=== PATIENT | male | born 1955 | race Caucasian/White ===

== ENCOUNTER 2017-08-08 20:04 | Inpatient (IN) | payer BC ==
[2017-08-08] MEDS ORDERED: Metoprolol Tartrate 5 MG/5 ML SDV IVPUSH PRN (21:52)
[2017-08-08] MEDS ORDERED: hydrALAZINE 20 MG/ML SDV IVPUSH PRN (21:52)
[2017-08-08] MEDS ORDERED: LORazepam 2 MG/ML SDV IVPUSH PRN (21:52)
[2017-08-08] MEDS ORDERED: Promethazine 12.5 MG in Sodium Chloride 0.9% 50 ML IV PRN (21:53)
[2017-08-08] MEDS ORDERED: Docusate Sodium 100 MG Cap PO PRN (21:53)
[2017-08-08] MEDS ORDERED: LORazepam 2 MG/ML SDV IV PRN (21:53)
[2017-08-08] MEDS ORDERED: Acetaminophen 325 MG Tab PO PRN (21:53)
[2017-08-08] MEDS ORDERED: Temazepam 15 MG Cap PO PRN (21:53)
[2017-08-08] MEDS ORDERED: Ondansetron 4 MG/2 ML SDV IV PRN (21:53)
[2017-08-08] MEDS ORDERED: Polyethylene Glycol 3350 Powder 17 GM Packet PO PRN (21:53)
[2017-08-08] MEDS ORDERED: Bisacodyl 5 MG Tab PO PRN (21:53)
[2017-08-08] MEDS ORDERED: Nicotine 21 MG/24 Hr Patch TRDERM ONE (22:00)
[2017-08-08] MEDS ORDERED: Levofloxacin/Dextrose 5%-Water 750 MG in Premix Bag 1 BAG IV ONE (22:00)
[2017-08-08] MEDS ORDERED: Saccharomyces Boulardii (Probiotic) 250 MG Cap PO ONE (22:00)
[2017-08-08] MEDS ORDERED: 50% Dextrose in Water 50 ML Syringe IVPUSH PRN (22:04)
[2017-08-08] MEDS ORDERED: guaiFENesin/Dextromethorphan 100-10 MG/5 ML Soln 5 ML Cup PO PRN (22:13)
--- NOTE | 2017-08-08 22:20 | PCM.HP ---
H&P History of Present Illness - General Date of Service: 08/08/17 Admit Problem/Dx: Admission Diagnosis/Problem Admission Diagnosis/Problem Pneumonia Source of Information: Patient, Family, Old Records, Provider, RN Notes Reviewed History Limitations: Reports: No Limitations - History of Present Illness Initial Comments - Free Text/Narative: This is a 62 yo white male who looks older than his stated age with past medical hx/o Impaired Vision/Hearing, HTN, PVD S/p Stent placement on left inner groin, Hx/o H. 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 Patient was initially seen at [facility] with complaints of having a cold that started this past Tuesday. His chief of complaint is associated with chest congestion, thoracic pain 2/2 persistent coughing, nasal congestion, and mixed: dry and productive cough with greenish colored sputum. His symptoms have progressively gotten worse that it hurts his back so bad from coughing. He took Dayquil and 's ProAir to improve his cold symptoms. He also sought a chiropractor's professional opinion for his significant back pain but according to him it did not help much. His initial work up was done at the [facility] with findings remarkable for leukocytosis with considerably elevated absolute neutrophils levels. His chest x -ray report shows moderate pleural effusion or consolidation in the right base Patient is being admitted for medical treatment of PNA/Bronchitis with Moderately Large Right Sided Pleural Effusion. He is CPR only. - Related Data Allergies/Adverse Reactions: Allergies Allergy/AdvReac Type Severity Reaction Status Date / Time No Known Allergies Allergy Verified 08/08/17 20:18 Home Medications: Home Meds Aspirin [Ecotrin] 81 mg PO DAILY 08/08/17 [History] Lisinopril [Prinivil] 10 mg PO DAILY 08/08/17 [History] Simvastatin. 1 tab PO DAILY 08/08/17 [History] glipiZIDE [Glipizide ER] 5 mg PO DAILY 08/08/17 [History] metFORMIN [Glucophage XR] 500 mg PO BEDTIME 08/08/17 [History] sitaGLIPtin Phos/Metformin HCl [Janumet 50-1,000 MG] 1 tab PO DAILY 08/08/17 [ History] Past Medical History Cardiovascular History: Reports: High Cholesterol, Hypertension Genitourinary History: Reports: Other (See Below) Other Genitourinary History: pancreatitis Endocrine/Metabolic History: Reports: Diabetes, Type II Social & Family History - Tobacco Use Smoking Status *Q: Current Every Day Smoker Years of Tobacco use: 50 Packs/Tins Daily: 2 - Caffeine Use Caffeine Use: Reports: Coffee - Recreational Drug Use Recreational Drug Use: No H&P Review of Systems - Review of Systems: Review Of Systems: See Below General: Reports: Weight Loss (13 Lbs). Denies: Fever, Chills, Malaise, Weakness, Fatigue, Night Sweats, Decreased Appetite HEENT: Reports: No Symptoms Pulmonary: Reports: Shortness of Breath, Cough, Sputum. Denies: Wheezing, Pleuritic Chest Pain Cardiovascular: Reports: Chest Pain (associated with relentless coughing), Dyspnea on Exertion. Denies: Palpitations, Orthopnea, Edema, Lightheadedness, Claudication, Blood Pressure Problem Gastrointestinal: Reports: Flatus. Denies: Abdominal Pain, Constipation, Diarrhea, Decreased Appetite, Difficulty Swallowing, Nausea, Vomiting Genitourinary: Reports: No Symptoms Musculoskeletal: Reports: Back Pain, Other (Flank Pain) Skin: Reports: Dryness, Bruising, Pruritis. Denies: Cyanosis, Jaundice, Diaphoresis, Erythema, Wound, Change in Hair/Nails Psychiatric: Reports: Agitation. Denies: Depression, Anxiety, Hallucinations, Suicidal Ideation Neurological: Reports: Difficulty Walking. Denies: Confusion, Headache, Syncope , Weakness Hematologic/Lymphatic: Reports: Anemia, Easy Bleeding Immunologic: Reports: No Symptoms Exam - Exam Exam: See Below - Vital Signs Vital Signs: Last Vital Signs Temp 36.6 C 08/08/17 20:13 Pulse 65 08/08/17 20:13 Resp 18 08/08/17 20:13 BP 157/84 H 08/08/17 20:13 Pulse Ox 97 08/08/17 20:13 Weight: 83.915 kg - Exam Quality Assessment: No: Supplemental Oxygen General: Alert, Oriented, Cooperative. No: Mild Distress HEENT: Conjunctiva Clear, EACs Clear, EOMI, Hearing Intact, Nares Patent, Normal Nasal Septum, Posterior Pharynx Clear, Pupils Equal, Pupils Reactive, TMs Clear Neck: Supple, Trachea Midline, Full Range of Motion, JVD. No: Lymphadenopathy, Thyromegaly Lungs: Normal Respiratory Effort, Decreased Breath Sounds (right side of the lungs), Crackles (left base) Cardiovascular: Regular Rate, Regular Rhythm GI/Abdominal Exam: Normal Bowel Sounds, Soft, Non-Tender, No Organomegaly, No Distention, No Abnormal Bruit, No Mass, Pelvis Stable (Male) Exam: Deferred Rectal (Males) Exam: Deferred Back Exam: Decreased Range of Motion Extremities: Normal Inspection, Normal Range of Motion, Non-Tender, No Pedal Edema, Normal Capillary Refill Peripheral Pulses: 3+: Posterior Tibial (L), Posterior Tibial (R), Dorsalis Pedis (L), Dorsalis Pedis (R) Skin: Warm, Dry, Intact, Rash, Petechia, Ecchymosis Neuro Extensive - Mental Status: Oriented x3, Normal Cognition, Memory Intact Neuro Extensive - Motor, Sensory, Reflexes: CN II-XII Intact, Normal Gait Psychiatric: Alert, Normal Affect, Normal Mood - Patient Data Result Diagrams: 08/09/17 05:40 08/09/17 05:40 EKG INTERPRETATION EKG Date: 08/08/17 Time: 22:20 Rhythm: Other (Sinus Rhythm) Rate (Beats/Min): 69 QRS: Other (Q wave in V1-V2) QT: Prolonged Comparison: NA - No Prior EKG EKG Interpretation Comments: Low voltage Problem List Initiated/Reviewed/Updated: Yes Orders Last 24hrs: Active Orders 24 hr Category Date Time Status Patient Status [ADT] Routine ADT 08/08/17 21:33 Active Blood Glucose Check, Bedside [RC] QIDACANDBED Care 08/08/17 22:04 Active Cardiac Monitoring [RC] CONTINUOUS Care 08/08/17 21:54 Active EKG Documentation Completion [RC] STAT Care 08/08/17 21:59 Active Flutter Valve Therapy [RT Chest Physiotherapy] [RC] Care 08/08/17 22:12 Active ASDIRECTED Height and Weight [RC] DAILY Care 08/08/17 21:53 Active IS (RT) [RT Incentive Spirometry] [RC] ASDIRECTED Care 08/08/17 22:12 Active Intake and Output [RC] QSHIFT Care 08/08/17 21:53 Active Oxygen Therapy [RC] PRN Care 08/08/17 21:53 Active Pulse Oximetry [RC] PRN Care 08/08/17 21:53 Active RT Aerosol Therapy [RC] ASDIRECTED Care 08/08/17 21:59 Active Up ad Addis [RC] ASDIRECTED Care 08/08/17 21:53 Active VTE/DVT Education [RC] PER UNIT ROUTINE Care 08/08/17 21:53 Active Vital Signs [RC] Q4H Care 08/08/17 21:53 Active Consult to Diabetic Nurse Specialist [CONS] Routine Cons 08/08/17 21:59 Active Consult to Clammer [CONS] Routine Cons 08/08/17 21:59 Active OT Evaluation and Treatment [CONS] Routine Cons 08/08/17 21:59 Active PT Evaluation and Treatment [CONS] Routine Cons 08/08/17 21:59 Active Respiratory Care Assess and Treatment [CONS] Routine Cons 08/08/17 21:59 Active 2 Gram Sodium Diet [DIET] Diet 08/08/17 Breakfast Active Consistent Carbohydrate Diet [DIET] Diet 08/08/17 Breakfast Active Heart Healthy Diet [DIET] Diet 08/08/17 Breakfast Active Echo Comp wo Cont [US] Urgent Exams 08/09/17 07:00 Ordered A1C [GLYCOSYLATED HEMOGLOBIN,HGBA1C] [CHEM] Stat Lab 08/08/17 22:03 Ordered BASIC METABOLIC PANEL,BMP [CHEM] AM Lab 08/09/17 05:11 Ordered BASIC METABOLIC PANEL,BMP [CHEM] AM Lab 08/10/17 05:11 Ordered BASIC METABOLIC PANEL,BMP [CHEM] Stat Lab 08/08/17 21:59 Ordered C-REACTIVE PROTEIN [CHEM] AM Lab 08/09/17 05:11 Ordered C-REACTIVE PROTEIN [CHEM] Stat Lab 08/08/17 21:59 Ordered CBC WITH AUTO DIFF [HEME] AM Lab 08/09/17 05:11 Ordered CBC WITH AUTO DIFF [HEME] AM Lab 08/10/17 05:11 Ordered CULTURE SPUTUM + SMEAR [RM] Routine Lab 08/08/17 22:08 Ordered INR,PT,PROTHROMBIN TIME [COAG] AM Lab 08/09/17 05:11 Ordered LIPID PANEL [CHEM] AM Lab 08/09/17 05:11 Ordered MAGNESIUM [CHEM] AM Lab 08/09/17 05:11 Ordered MAGNESIUM [CHEM] AM Lab 08/10/17 05:11 Ordered MAGNESIUM [CHEM] Stat Lab 08/08/17 21:59 Ordered MICROALBUMIN,URINE RANDOM [URCHEM] Stat Lab 08/08/17 22:04 Ordered MYCOPLASMA PNEUMONIAE IGM AB [CHEM] Stat Lab 08/08/17 22:07 Ordered RESPIRATORY PANEL BY PCR [MREF] Stat Lab 08/08/17 22:08 Ordered STREP PNEUMONIAE ANTIGEN [MREF] Stat Lab 08/08/17 22:08 Ordered T4 FREE [CHEM] Stat Lab 08/08/17 21:59 Ordered TSH [CHEM] Stat Lab 08/08/17 21:59 Ordered URINALYSIS W/MICROSCOPIC [UA W/MICROSCOPIC] [URIN] Lab 08/08/17 22:03 Ordered Urgent VITAMIN D 25-HYROXY (D2, D3) [REF] Stat Lab 08/08/17 22:03 Ordered Acetaminophen [Tylenol] Med 08/08/17 21:53 Active 650 mg PO Q4H PRN Acetaminophen/HYDROcodone [Nilwood 325-5 MG] Med 08/08/17 21:53 Active 1 tab PO Q4H PRN Albuterol/Ipratropium [DuoNeb 3.0-0.5 MG/3 ML] Med 08/08/17 21:53 Active 3 ml NEB Q4H PRN Aspirin [Halfprin] Med 08/09/17 09:00 Active 81 mg PO DAILY Benzonatate [Tessalon Perles] Med 08/08/17 21:00 Ordered 200 mg PO BID Bisacodyl [Dulcolax] Med 08/08/17 21:53 Active 5 mg PO DAILY PRN Dextromethorphan/guaiFENesin [Robitussin DM] Med 08/08/17 22:13 Ordered 10 ml PO Q4H PRN Dextrose 50% in Water Med 08/08/17 22:04 Active 50 ml IVPUSH ASDIRECTED PRN Docusate Sodium [Colace] Med 08/08/17 21:53 Active 100 mg PO BID PRN Docusate Sodium/Sennosides [Senna Plus] Med 08/08/17 21:53 Active 1 tab PO BID PRN Insulin Aspart [NovoLOG] Med 08/09/17 07:00 Active See Protocol SUBCUT QIDACANDBED LORazepam [Ativan] Med 08/08/17 21:53 Active 1 mg IV Q6H PRN LORazepam [Ativan] Med 08/08/17 21:52 Active 2 mg IVPUSH Q4H PRN Levofloxacin/Dextrose 5%-Water [Levaquin in D5W 750 MG/ Med 08/08/17 22:09 Ordered 150 ML] 750 mg Premix Bag 1 bag IV ONETIME Levofloxacin/Dextrose 5%-Water [Levaquin in D5W 750 MG/ Med 08/09/17 22:00 Ordered 150 ML] 750 mg Premix Bag 1 bag IV Q24H Lisinopril [Prinivil] Med 08/09/17 09:00 Active 10 mg PO DAILY Magnesium Rep Pharmacy to Dose [Pharmacy to Dose - Med 08/08/17 22:00 Pending Magnesium Replacement] 1 dose .XX ASDIRECTED Metoprolol Tartrate [Lopressor] Med 08/08/17 21:52 Active 5 mg IVPUSH Q4H PRN Morphine Med 08/08/17 21:53 Active 1 mg IVPUSH Q4H PRN Ondansetron [Zofran] Med 08/08/17 21:53 Active 4 mg IV Q6H PRN Polyethylene Glycol 3350 [MiraLAX] Med 08/08/17 21:53 Active 17 gm PO DAILY PRN Potassium Rep Pharmacy to Dose [Pharmacy to Dose - Med 08/08/17 22:00 Pending Potassium Replacement] 1 dose .XX ASDIRECTED Promethazine [Phenergan] 12.5 mg Med 08/08/17 21:53 Active Sodium Chloride 0.9% [Normal Saline] 50 ml IV Q6H Saccharomyces Boulardii [Florastor] Med 08/09/17 09:00 Ordered 250 mg PO DAILY Saccharomyces Boulardii [Florastor] Med 08/09/17 22:10 Once 500 mg PO DAILY ONE Simvastatin. Med 08/09/17 09:00 Pending 1 tab PO DAILY Temazepam [Restoril] Med 08/08/17 21:53 Active 15 mg PO BEDTIME PRN glipiZIDE [Glucotrol XL] Med 08/09/17 09:00 Active 5 mg PO DAILY hydrALAZINE [Apresoline] Med 08/08/17 21:52 Active 20 mg IVPUSH Q4H PRN metFORMIN [Glucophage] Med 08/09/17 21:00 Active 250 mg PO BID Sequential Compression Device [OM.PC] Per Unit Routine Oth 08/08/17 21:54 Ordered Resuscitation Status Routine Resus Stat 08/08/17 21:53 Ordered Medication Orders Acetaminophen (Tylenol) 650 mg PO Q4H PRN PRN Reason: Pain (Mild 1-3)/fever Hydrocodone Bitart/Acetaminophen (Nilwood 325-5 Mg) 1 tab PO Q4H PRN PRN Reason: Pain (moderate 4-6) Albuterol/Ipratropium (Duoneb 3.0-0.5 Mg/3 Ml) 3 ml NEB Q4H PRN PRN Reason: Shortness Of Breath/wheezing Aspirin (Halfprin) 81 mg PO DAILY VON Benzonatate (Tessalon Perles) 200 mg PO BID [facility] Bisacodyl (Dulcolax) 5 mg PO DAILY PRN PRN Reason: Constipation Dextrose/Water (Dextrose 50% In Water) 50 ml IVPUSH ASDIRECTED PRN PRN Reason: Hypoglycemia Docusate Sodium (Colace) 100 mg PO BID PRN PRN Reason: Constipation Glipizide (Glucotrol Xl) 5 mg PO DAILY [facility] Guaifenesin/Phenylephrine HCl (Robitussin Dm) 10 ml PO Q4H PRN PRN Reason: Cough Hydralazine HCl (Apresoline) 20 mg IVPUSH Q4H PRN PRN Reason: Hypertension Promethazine HCl 12.5 mg/ (Sodium Chloride) 50.5 mls @ 100 mls/hr IV Q6H PRN PRN Reason: Nausea/Vomiting Levofloxacin/Dextrose 750 mg/ (Premix) 150 mls @ 100 mls/hr IV ONETIME ONE Stop: 08/08/17 23:38 Levofloxacin/Dextrose 750 mg/ (Premix) 150 mls @ 100 mls/hr IV Q24H [facility] Insulin Aspart (Novolog) 0 unit SUBCUT QIDACANDBED [facility]; Protocol Lisinopril (Prinivil) 10 mg PO DAILY [facility] Lorazepam (Ativan) 2 mg IVPUSH Q4H PRN PRN Reason: Seizures Lorazepam (Ativan) 1 mg IV Q6H PRN PRN Reason: Anxiety Magnesium Sulfate (Pharmacy To Dose - Magnesium Replacement) 1 dose .XX ASDIRECTED [facility] Metformin HCl (Glucophage) 250 mg PO BID [facility] Metoprolol Tartrate (Lopressor) 5 mg IVPUSH Q4H PRN PRN Reason: Tachycardia Morphine Sulfate (Morphine) 1 mg IVPUSH Q4H PRN PRN Reason: Other Stop: 08/09/17 21:56 Non-Formulary Medication (Simvastatin.) 1 tab PO DAILY VON Ondansetron HCl (Zofran) 4 mg IV Q6H PRN PRN Reason: Nausea/Vomiting Polyethylene Glycol (Miralax) 17 gm PO DAILY PRN PRN Reason: Constipation Potassium Chloride (Pharmacy To Dose - Potassium Replacement) 1 dose .XX ASDIRECTED VON Saccharomyces Boulardii (Florastor) 250 mg PO DAILY VON Saccharomyces Boulardii (Florastor) 500 mg PO DAILY ONE Stop: 08/09/17 22:11 Senna/Docusate Sodium (Senna Plus) 1 tab PO BID PRN PRN Reason: Constipation Temazepam (Restoril) 15 mg PO BEDTIME PRN PRN Reason: Sleep Assessment/Plan Comment:: Assessment/Plan: Acute: Community Acquired PNA/Bronchitis - Superimposed by Moderately Large Right Sided Pleural Effusion - Risk Factors: Pulmonary Insufficiency and Active Smoker - Cough is mixed in nature: dry and sometimes could be we with greenish sputum - CURB 65 is not indicated; patient < 65 - PSI/PORT Score is 73 points: Risk Class III, 0.9-2.8% mortality. Outpatient or inpatient treatment, depending on clinical judgment. - WBC 16.6.K, Absolute Neutrophils 12.5%, CRP is 7.4 - Clinic CXR report 08/09/27: a moderate new right sided pleural effusion has developed or consolidated in the right base - Sputum Cx, Mycoplasma pneumoniae Ag, Strep pneumoniae Ag and Respiratory Viral Panel - IV Levaquin 750 mg IV daily, Decongestant/Expectorant Q4H PRN, and Tessalon Perles 200 mg po BID - Serial CXR as indicated and FV/IS as directed Moderately Large Pleural Effusion - New per [facility] notes - 2/2 PNA vs Heart Failure - He is not on blood thinners - Supplemental O2 PRN and IV Morphine PRB for Dyspnea and SOB - 2D echo to r/o Heart Failure - He is not on blood thinners - DVT prophylaxis: SCDs for now - Therapeutic and Diagnostic Thoracentesis in AM Hyperglycemia with DM2 - He normally runs in the 200s on average - BS on admission was 256 - Has been 7 years he was first diagnosed - He is not on steroids - DM Meds: Metformin 500 mg po daily and Glipizide ER 10 mg daily - A1C- 9.80 - Hold Janumet; ISS with low dose with Accu-check access Unintentional Weight Loss - Lost 13lbs since February 2017 - This could be 2/2 Pleural effusion +/- Chronic pancreatitis (Little to no intake due to Pain with eating) - SCC hx/o on his left hand Generalized Weakness - 2/2 Above - As above Tobacco Use Disorder - Smokes 2ppd for 50 year - Counseled on Smoking Cessation - Nicotine Patch Daily Chronic: Impaired Vision/Hearing HTN PVD S/p Stent placement on left inner groin Hx/o H. 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 Pylori screening RT/PT/OT consult Recommend PFT outpatient DVT/GI PPx: SCDs and H2B SW/CM for d/c planning Code status: CPR only
[2017-08-08] MEDS: Albuterol/Ipratropium 3.0-0.5 MG/3 ML Neb Soln NEB PRN (22:43)
[2017-08-08] MEDS: Benzonatate 100 MG Cap PO SCH (23:37)
[2017-08-09] MEDS ORDERED: Famotidine 20 MG/2 ML SDV IVPUSH ONE (00:22)
[2017-08-09] MEDS: Albuterol/Ipratropium 3.0-0.5 MG/3 ML Neb Soln NEB PRN ×4 (06:19→20:12)
[2017-08-09] MEDS: metFORMIN 500 MG Tab PO SCH ×2 (06:32→18:16)
[2017-08-09] MEDS ORDERED: Pneumococcal Polyvalent-23 Vaccine 0.5 ML SDV IM ONE (07:16)
[2017-08-09] MEDS ORDERED: Aspirin 81 MG Tab.EC PO SCH (09:00)
[2017-08-09] MEDS ORDERED: glipiZIDE 5 MG Tab.ER PO SCH (09:00)
[2017-08-09] MEDS ORDERED: Nicotine 21 MG/24 Hr Patch TRDERM SCH (09:00)
[2017-08-09] MEDS ORDERED: Lisinopril 10 MG Tab PO SCH (09:00)
[2017-08-09] MEDS ORDERED: Saccharomyces Boulardii (Probiotic) 250 MG Cap PO SCH (09:00)
[2017-08-09] MEDS ORDERED: Simvastatin 10 MG Tab PO SCH (09:00)
[2017-08-09] MEDS: Benzonatate 100 MG Cap PO SCH ×2 (09:27→21:51)
[2017-08-09] MEDS: Insulin Aspart 100 Units/ML 3 ML Pen SUBCUT SCH ×4 (09:28→21:59)
[2017-08-09] MEDS: Famotidine 20 MG Tab PO SCH ×2 (09:28→21:50)
[2017-08-09] MEDS: Morphine 2 MG/ML Syringe IVPUSH PRN ×3 (11:54→12:45)
[2017-08-09] MEDS ORDERED: Lidocaine 1% 50 ML MDV ONE (12:19)
[2017-08-09] MEDS ORDERED: Morphine 4 MG/ML Syringe ONE ×2 (12:43→12:44)
--- NOTE | 2017-08-09 13:03 | PCM.PRNOTE ---
- Free Text/Narrative Note: DATE OF PROCEDURE: 08/09/2017 PREOPERATIVE DIAGNOSIS: Right Sided Pleural Effusion POSTOPERATIVE DIAGNOSIS: Right Sided Pleural Effusion PROCEDURE PERFORMED: U/S Guided Diagnostic and Therapeutic Right Sided Thoracentesis SURGEON: Jac To DO [employer] HELPER: SHAR Grimes DESCRIPTION OF PROCEDURE: After informed consent was obtained, signed, the patient had ultrasound localization in the right hemithorax. The patient was sterilely prepped and topical lidocaine was induced. Stab incision was made and a thoracentesis catheter was inserted and 2525 mL of clear straw colored pleural fluid was obtained without difficulty. Estimated Blood Loss: Minimal The patient tolerated the procedure well w/o any complications. Post procedure chest x-ray is pending.
--- NOTE | 2017-08-09 13:17 | CR ---
Chest: Portable view of the chest was obtained. Comparison: No prior chest x-ray. Heart size appears within normal limits for portable technique. Slight right basilar atelectasis is noted. Lungs otherwise are clear. Bony structures are grossly intact. No pneumothorax is seen. Impression: 1. Mild right basilar atelectasis. No pneumothorax is seen. 2. Nothing acute is otherwise appreciated. Diagnostic code #2
--- NOTE | 2017-08-09 13:30 | PCM.PN ---
<Kelley Alvarez - Last Filed: 08/10/17 08:00> - General Info Date of Service: 08/09/17 Admission Dx/Problem (Free Text): Admission Diagnosis/Problem Admission Diagnosis/Problem Pneumonia Subjective Update: In to see [place] today. He is on 2-3 L O2 NC. He does not appear in acute respiratory distress. He reports slight dyspnea. Denies chest pain and he has no GI/ complaints. Functional Status: Reports: Pain Controlled, Tolerating Diet, Ambulating, Urinating - Review of Systems General: Reports: No Symptoms. Denies: Fever, Weakness HEENT: Reports: Sinus Congestion. Denies: Sore Throat Pulmonary: Reports: No Symptoms, Shortness of Breath (mild ). Denies: Cough, Hemoptysis Cardiovascular: Reports: No Symptoms. Denies: Chest Pain, Palpitations, Edema Gastrointestinal: Reports: No Symptoms. Denies: Abdominal Pain, Constipation, Diarrhea, Nausea, Vomiting Genitourinary: Reports: No Symptoms. Denies: Dysuria, Frequency Musculoskeletal: Reports: No Symptoms Skin: Reports: No Symptoms. Denies: Cyanosis, Pallor Neurological: Reports: No Symptoms. Denies: Confusion, Dizziness, Headache Psychiatric: Reports: No Symptoms. Denies: Confusion, Depression - Patient Data Vitals - Most Recent: Last Vital Signs Temp 98.2 F 08/09/17 11:12 Pulse 73 08/09/17 11:12 Resp 20 08/09/17 11:12 BP 134/76 08/09/17 11:12 Pulse Ox 91 L 08/09/17 11:22 Weight - Most Recent: 83.915 kg I&O - Last 24 Hours: Intake & Output 08/08/17 08/09/17 08/09/17 22:59 06:59 14:59 Intake Total 950 480 Output Total 400 Balance 550 480 Lab Results Last 24 Hours: Laboratory Results - last 24 hr 08/08/17 08/08/17 08/08/17 Range/Units 22:15 22:15 22:15 WBC (4.23-9.07) K/mm3 RBC (4.63-6.08) M/mm3 Hgb (13.7-17.5) gm/L Hct (40.1-51.0) % MCV (79.0-92.2) fl MCH (25.7-32.2) pg MCHC (32.2-35.5) g/dl RDW Std Deviation (35.1-43.9) fL Plt Count (163-337) K/mm3 MPV (9.4-12.3) fl Neut % (Auto) (34.0-67.9) % Lymph % (Auto) (21.8-53.1) % [place] % (Auto) (5.3-12.2) % Eos % (Auto) (0.8-7.0) Baso % (Auto) (0.1-1.2) % Neut # (Auto) (1.78-5.38) K/mm3 Lymph # (Auto) (1.32-3.57) K/mm3 [place] # (Auto) (0.30-0.82) K/mm3 Eos # (Auto) (0.04-0.54) K/mm3 Baso # (Auto) (0.01-0.08) K/mm3 PT (9.5-12.1) SECONDS INR Sodium 143 (136-145) mEq/L Potassium 3.9 (3.5-5.1) mEq/L Chloride 105 (98-107) mEq/L Carbon Dioxide 28 (21-32) mEq/L Anion Gap 13.9 (5-15) BUN 11 (7-18) mg/dL Creatinine 0.7 (0.7-1.3) mg/dL Est Cr Clr Drug Dosing 111.53 mL/min Estimated GFR (MDRD) > 60 (>60) mL/min BUN/Creatinine Ratio 15.7 (14-18) Glucose 256 H (80-115) mg/dL POC Glucose (80-115) mg/dL Hemoglobin A1c 9.80 H (4.50-6.20) % Calcium 8.8 (8.5-10.1) mg/dL Magnesium 2.0 (1.8-2.4) mg/dl C-Reactive Protein 7.4 H* (<1.0) mg/dL Triglycerides (<150) mg/dL Cholesterol (<200) mg/dL LDL Cholesterol Direct (<100) mg/dL HDL Cholesterol (40-59) mg/dL Free T4 1.16 (0.76-1.46) ng/dL TSH 3rd Generation 0.785 (0.358-3.74) uIU/mL Urine Color (Yellow) Urine Appearance (Clear) Urine pH (5.0-8.0) Ur Specific [place] (1.005-1.030) Urine Protein (Negative) Urine Glucose (UA) (Negative) Urine Ketones (Negative) Urine Occult Blood (Negative) Urine Nitrite (Negative) Urine Bilirubin (Negative) Urine Urobilinogen (0.2-1.0) Ur Leukocyte Esterase (Negative) Urine RBC (0-5) /hpf Urine WBC (0-5) /hpf Ur Epithelial Cells (0-5) /hpf Amorphous Sediment (NOT SEEN) /hpf Urine Bacteria (FEW) /hpf Urine Mucus (FEW) /hpf Ur Random Microalbumin (1.3-20.0) mg/L H. pylori IgG Antibody (NEGATIVE) Mycoplasma pneumon IgM Negative (NEGATIVE) 08/08/17 08/09/17 08/09/17 Range/Units 22:15 04:55 04:55 WBC (4.23-9.07) K/mm3 RBC (4.63-6.08) M/mm3 Hgb (13.7-17.5) gm/L Hct (40.1-51.0) % MCV (79.0-92.2) fl MCH (25.7-32.2) pg MCHC (32.2-35.5) g/dl RDW Std Deviation (35.1-43.9) fL Plt Count (163-337) K/mm3 MPV (9.4-12.3) fl Neut % (Auto) (34.0-67.9) % Lymph % (Auto) (21.8-53.1) % [place] % (Auto) (5.3-12.2) % Eos % (Auto) (0.8-7.0) Baso % (Auto) (0.1-1.2) % Neut # (Auto) (1.78-5.38) K/mm3 Lymph # (Auto) (1.32-3.57) K/mm3 [place] # (Auto) (0.30-0.82) K/mm3 Eos # (Auto) (0.04-0.54) K/mm3 Baso # (Auto) (0.01-0.08) K/mm3 PT (9.5-12.1) SECONDS INR Sodium (136-145) mEq/L Potassium (3.5-5.1) mEq/L Chloride (98-107) mEq/L Carbon Dioxide (21-32) mEq/L Anion Gap (5-15) BUN (7-18) mg/dL Creatinine (0.7-1.3) mg/dL Est Cr Clr Drug Dosing mL/min Estimated GFR (MDRD) (>60) mL/min BUN/Creatinine Ratio (14-18) Glucose (80-115) mg/dL POC Glucose (80-115) mg/dL Hemoglobin A1c (4.50-6.20) % Calcium (8.5-10.1) mg/dL Magnesium (1.8-2.4) mg/dl C-Reactive Protein (<1.0) mg/dL Triglycerides (<150) mg/dL Cholesterol (<200) mg/dL LDL Cholesterol Direct (<100) mg/dL HDL Cholesterol (40-59) mg/dL Free T4 (0.76-1.46) ng/dL TSH 3rd Generation (0.358-3.74) uIU/mL Urine Color Yellow (Yellow) Urine Appearance Clear (Clear) Urine pH 7.0 (5.0-8.0) Ur Specific [place] > or = 1.030 (1.005-1.030) Urine Protein Trace H (Negative) Urine Glucose (UA) 2+ H (Negative) Urine Ketones Negative (Negative) Urine Occult Blood Trace-intact H (Negative) Urine Nitrite Negative (Negative) Urine Bilirubin Negative (Negative) Urine Urobilinogen 1.0 (0.2-1.0) Ur Leukocyte Esterase Negative (Negative) Urine RBC 0-5 (0-5) /hpf Urine WBC 0-5 (0-5) /hpf Ur Epithelial Cells Not seen (0-5) /hpf Amorphous Sediment Few H (NOT SEEN) /hpf Urine Bacteria Few (FEW) /hpf Urine Mucus Many H (FEW) /hpf Ur Random Microalbumin 11.7 (1.3-20.0) mg/L H. pylori IgG Antibody Negative (NEGATIVE) Mycoplasma pneumon IgM (NEGATIVE) 08/09/17 08/09/17 08/09/17 Range/Units 05:40 05:40 05:40 WBC 14.17 H (4.23-9.07) K/mm3 RBC 4.56 L (4.63-6.08) M/mm3 Hgb 13.0 L (13.7-17.5) gm/L Hct 40.4 (40.1-51.0) % MCV 88.6 (79.0-92.2) fl MCH 28.5 (25.7-32.2) pg MCHC 32.2 (32.2-35.5) g/dl RDW Std Deviation 43.5 (35.1-43.9) fL Plt Count 448 H (163-337) K/mm3 MPV 10.4 (9.4-12.3) fl Neut % (Auto) 64.3 (34.0-67.9) % Lymph % (Auto) 18.8 L (21.8-53.1) % [place] % (Auto) 10.3 (5.3-12.2) % Eos % (Auto) 5.3 (0.8-7.0) Baso % (Auto) 0.6 (0.1-1.2) % Neut # (Auto) 9.11 H (1.78-5.38) K/mm3 Lymph # (Auto) 2.67 (1.32-3.57) K/mm3 [place] # (Auto) 1.46 H (0.30-0.82) K/mm3 Eos # (Auto) 0.75 H (0.04-0.54) K/mm3 Baso # (Auto) 0.08 (0.01-0.08) K/mm3 PT 12.3 H (9.5-12.1) SECONDS INR 1.13 Sodium 141 (136-145) mEq/L Potassium 4.0 (3.5-5.1) mEq/L Chloride 104 (98-107) mEq/L Carbon Dioxide 25 (21-32) mEq/L Anion Gap 16.0 H (5-15) BUN 11 (7-18) mg/dL Creatinine 0.7 (0.7-1.3) mg/dL Est Cr Clr Drug Dosing 111.53 mL/min Estimated GFR (MDRD) > 60 (>60) mL/min BUN/Creatinine Ratio 15.7 (14-18) Glucose 175 H (80-115) mg/dL POC Glucose (80-115) mg/dL Hemoglobin A1c (4.50-6.20) % Calcium 8.6 (8.5-10.1) mg/dL Magnesium 1.9 (1.8-2.4) mg/dl C-Reactive Protein 6.5 H* (<1.0) mg/dL Triglycerides 55 (<150) mg/dL Cholesterol 86 (<200) mg/dL LDL Cholesterol Direct 56 (<100) mg/dL HDL Cholesterol 22.0 L (40-59) mg/dL Free T4 (0.76-1.46) ng/dL TSH 3rd Generation (0.358-3.74) uIU/mL Urine Color (Yellow) Urine Appearance (Clear) Urine pH (5.0-8.0) Ur Specific [place] (1.005-1.030) Urine Protein (Negative) Urine Glucose (UA) (Negative) Urine Ketones (Negative) Urine Occult Blood (Negative) Urine Nitrite (Negative) Urine Bilirubin (Negative) Urine Urobilinogen (0.2-1.0) Ur Leukocyte Esterase (Negative) Urine RBC (0-5) /hpf Urine WBC (0-5) /hpf Ur Epithelial Cells (0-5) /hpf Amorphous Sediment (NOT SEEN) /hpf Urine Bacteria (FEW) /hpf Urine Mucus (FEW) /hpf Ur Random Microalbumin (1.3-20.0) mg/L H. pylori IgG Antibody (NEGATIVE) Mycoplasma pneumon IgM (NEGATIVE) 08/09/17 08/09/17 Range/Units 06:26 11:58 WBC (4.23-9.07) K/mm3 RBC (4.63-6.08) M/mm3 Hgb (13.7-17.5) gm/L Hct (40.1-51.0) % MCV (79.0-92.2) fl MCH (25.7-32.2) pg MCHC (32.2-35.5) g/dl RDW Std Deviation (35.1-43.9) fL Plt Count (163-337) K/mm3 MPV (9.4-12.3) fl Neut % (Auto) (34.0-67.9) % Lymph % (Auto) (21.8-53.1) % [place] % (Auto) (5.3-12.2) % Eos % (Auto) (0.8-7.0) Baso % (Auto) (0.1-1.2) % Neut # (Auto) (1.78-5.38) K/mm3 Lymph # (Auto) (1.32-3.57) K/mm3 [place] # (Auto) (0.30-0.82) K/mm3 Eos # (Auto) (0.04-0.54) K/mm3 Baso # (Auto) (0.01-0.08) K/mm3 PT (9.5-12.1) SECONDS INR Sodium (136-145) mEq/L Potassium (3.5-5.1) mEq/L Chloride (98-107) mEq/L Carbon Dioxide (21-32) mEq/L Anion Gap (5-15) BUN (7-18) mg/dL Creatinine (0.7-1.3) mg/dL Est Cr Clr Drug Dosing mL/min Estimated GFR (MDRD) (>60) mL/min BUN/Creatinine Ratio (14-18) Glucose (80-115) mg/dL POC Glucose 185 H 268 H (80-115) mg/dL Hemoglobin A1c (4.50-6.20) % Calcium (8.5-10.1) mg/dL Magnesium (1.8-2.4) mg/dl C-Reactive Protein (<1.0) mg/dL Triglycerides (<150) mg/dL Cholesterol (<200) mg/dL LDL Cholesterol Direct (<100) mg/dL HDL Cholesterol (40-59) mg/dL Free T4 (0.76-1.46) ng/dL TSH 3rd Generation (0.358-3.74) uIU/mL Urine Color (Yellow) Urine Appearance (Clear) Urine pH (5.0-8.0) Ur Specific [place] (1.005-1.030) Urine Protein (Negative) Urine Glucose (UA) (Negative) Urine Ketones (Negative) Urine Occult Blood (Negative) Urine Nitrite (Negative) Urine Bilirubin (Negative) Urine Urobilinogen (0.2-1.0) Ur Leukocyte Esterase (Negative) Urine RBC (0-5) /hpf Urine WBC (0-5) /hpf Ur Epithelial Cells (0-5) /hpf Amorphous Sediment (NOT SEEN) /hpf Urine Bacteria (FEW) /hpf Urine Mucus (FEW) /hpf Ur Random Microalbumin (1.3-20.0) mg/L H. pylori IgG Antibody (NEGATIVE) Mycoplasma pneumon IgM (NEGATIVE) Med Orders - Current: Current Medications Acetaminophen (Tylenol) 650 mg PO Q4H PRN PRN Reason: Pain (Mild 1-3)/fever Hydrocodone Bitart/Acetaminophen ([place] 325-5 Mg) 1 tab PO Q4H PRN PRN Reason: Pain (moderate 4-6) Albuterol/Ipratropium (Duoneb 3.0-0.5 Mg/3 Ml) 3 ml NEB Q4H PRN PRN Reason: Shortness Of Breath/wheezing Last Admin: 08/09/17 11:21 Dose: 3 ml Aspirin (Halfprin) 81 mg PO DAILY [facility] Last Admin: 08/09/17 09:28 Dose: 81 mg Benzonatate (Tessalon Perles) 200 mg PO BID [facility] Last Admin: 08/09/17 09:27 Dose: 200 mg Bisacodyl (Dulcolax) 5 mg PO DAILY PRN PRN Reason: Constipation Dextrose/Water (Dextrose 50% In Water) 50 ml IVPUSH ASDIRECTED PRN PRN Reason: Hypoglycemia Docusate Sodium (Colace) 100 mg PO BID PRN PRN Reason: Constipation Famotidine (Pepcid) 20 mg PO BID [facility] Last Admin: 08/09/17 09:28 Dose: 20 mg Glipizide (Glucotrol Xl) 5 mg PO DAILY [facility] Last Admin: 08/09/17 09:28 Dose: 5 mg Guaifenesin/Phenylephrine HCl (Robitussin Dm) 10 ml PO Q4H PRN PRN Reason: Cough Hydralazine HCl (Apresoline) 20 mg IVPUSH Q4H PRN PRN Reason: Hypertension Promethazine HCl 12.5 mg/ (Sodium Chloride) 50.5 mls @ 100 mls/hr IV Q6H PRN PRN Reason: Nausea/Vomiting Levofloxacin/Dextrose 750 mg/ (Premix) 150 mls @ 100 mls/hr IV Q24H [facility] Insulin Aspart (Novolog) 0 unit SUBCUT QIDACANDBED [facility]; Protocol Last Admin: 08/09/17 09:28 Dose: 1 units Lisinopril (Prinivil) 10 mg PO DAILY [facility] Last Admin: 08/09/17 09:28 Dose: 10 mg Lorazepam (Ativan) 2 mg IVPUSH Q4H PRN PRN Reason: Seizures Lorazepam (Ativan) 1 mg IV Q6H PRN PRN Reason: Anxiety Magnesium Sulfate (Pharmacy To Dose - Magnesium Replacement) 1 dose .XX ASDIRECTED [facility] Metformin HCl (Glucophage) 250 mg PO BIDMEALS [facility] Last Admin: 08/09/17 06:32 Dose: 250 mg Metoprolol Tartrate (Lopressor) 5 mg IVPUSH Q4H PRN PRN Reason: Tachycardia Miscellaneous Information (Remove Patch) 1 ea TRDERM DAILY [facility] Last Admin: 08/09/17 09:53 Dose: Not Given Morphine Sulfate (Morphine) 1 mg IVPUSH Q4H PRN PRN Reason: Other Stop: 08/09/17 21:56 Last Admin: 08/09/17 11:54 Dose: 1 mg Nicotine (Habitrol) 21 mg TRDERM DAILY [facility] Last Admin: 08/09/17 09:53 Dose: Not Given Ondansetron HCl (Zofran) 4 mg IV Q6H PRN PRN Reason: Nausea/Vomiting Polyethylene Glycol (Miralax) 17 gm PO DAILY PRN PRN Reason: Constipation Potassium Chloride (Pharmacy To Dose - Potassium Replacement) 1 dose .XX ASDIRECTED [facility] Saccharomyces Boulardii (Florastor) 250 mg PO DAILY [facility] Last Admin: 08/09/17 09:28 Dose: 250 mg Senna/Docusate Sodium (Senna Plus) 1 tab PO BID PRN PRN Reason: Constipation Simvastatin (Zocor) 10 mg PO DAILY [facility] Last Admin: 08/09/17 09:28 Dose: 10 mg Temazepam (Restoril) 15 mg PO BEDTIME PRN PRN Reason: Sleep Discontinued Medications Famotidine (Pepcid) 20 mg IVPUSH ONETIME ONE Stop: 08/09/17 00:23 Last Admin: 08/09/17 01:24 Dose: 20 mg Levofloxacin/Dextrose 750 mg/ (Premix) 150 mls @ 100 mls/hr IV ONETIME ONE Stop: 08/08/17 23:29 Last Admin: 08/08/17 23:37 Dose: 100 mls/hr Lidocaine HCl (Xylocaine 1%) Confirm Administered Dose 50 ml .ROUTE .STK-MED ONE Stop: 08/09/17 12:20 Metformin HCl (Glucophage) 250 mg PO BID [facility] Morphine Sulfate (Morphine) Confirm Administered Dose 4 mg .ROUTE .STK-MED ONE Stop: 08/09/17 12:44 Morphine Sulfate (Morphine) Confirm Administered Dose 4 mg .ROUTE .STK-MED ONE Stop: 08/09/17 12:45 Nicotine (Habitrol) 21 mg TRDERM ONETIME ONE Stop: 08/08/17 22:01 Last Admin: 08/08/17 23:37 Dose: Not Given Pneumococcal Polyvalent Vaccine (Pneumovax 23) 0.5 ml IM .ONCE ONE Stop: 08/09/17 07:17 Saccharomyces Boulardii (Florastor) 500 mg PO DAILY ONE Stop: 08/08/17 22:01 Last Admin: 08/08/17 23:36 Dose: 500 mg - Exam Quality Assessment: Supplemental Oxygen General: Alert, Oriented, Cooperative, No Acute Distress HEENT: Pupils Equal, Pupils Reactive, EOMI, Mucous Membr. Moist/[place] Neck: Supple. No: Lymphadenopathy Lungs: Decreased Breath Sounds (b/l but worse on left ). No: Crackles, Rales Cardiovascular: Regular Rate, Regular Rhythm, No Murmurs GI/Abdominal Exam: Normal Bowel Sounds, Soft, Non-Tender, No Distention (Male) Exam: Deferred Back Exam: Normal Inspection, Full Range of Motion Extremities: Normal Inspection, Normal Range of Motion, Non-Tender, No Pedal Edema Skin: Warm, Dry, Intact Neurological: No New Focal Deficit, Strength Equal Bilateral, Cranial Nerves Intact (grossly ) Psy/Mental Status: Alert, Normal Affect, Normal Mood - Problem List Review Problem List Initiated/Reviewed/Updated: Yes - Plan Plan:: Assessment/Plan: Acute: Community Acquired/Aspiration PNA vs Chronic Bronchitis - Superimposed by Moderately Large Right Sided Pleural Effusion - Risk Factors: Pulmonary Insufficiency and Active Smoker - Cough is mixed in nature: dry and sometimes could be wet with greenish sputum - CURB 65 is not indicated; PSI/PORT Score is 83 points: Risk Class III, 0.9- 2.8% mortality, outpatient or inpatient treatment, depending on clinical judgment - WBC 14.17K (was 16.6.K), CRP 6.5 (was 7.4) Absolute Neutrophils 12.5% - Clinic CXR report 08/09/27: a moderate new right sided pleural effusion has developed or consolidated in the right base - Sputum Cx, Strep pneumoniae Ag and Respiratory Viral Panel pending - Mycoplasma pneumoniae negative - IV Levaquin 750 mg IV daily, Decongestant/Expectorant Q4H PRN, and Tessalon Perles 200 mg po BID - Serial CXR as indicated and FV/IS as directed Moderately Large Pleural Effusion - New per [facility] notes - 2/2 PNA vs Heart Failure - He is not on blood thinners - Supplemental O2 PRN and IV Morphine PRN for Dyspnea and SOB - 2D echo to r/o Heart Failure pending - DVT prophylaxis: SCDs for now - Therapeutic and Diagnostic Right Sided Thoracentesis performed today with 2525 ml straw colored pleural fluid removed; he did experience pain at site of thoracentesis and chest pain after the procedure --> chest xray s/p thoracentesis was read as no pneumothorax and EKG was HR 67 and 1st degree HB - His pain is likely 2/2 reexpansion syndrome - Will monitor closely for reexpansion pulmonary edema --> supplemental O2 , BiPap prn, patient to lie on unaffected side - CXR tomorrow morning - Pleural fluid sent for analysis Hyperglycemia with DM2 - Patient reports that he normally runs in the 200s on average - BS on admission was 256 and UA with 2+ glucose - Has been 7 years he was first diagnosed - He is not on steroids - DM Meds: Metformin 500 mg po daily, Janument daily and Glipizide ER 5 mg daily - A1C- 9.80 - UA with microalbumin 11.7 - Lipid panel: Total cholesterol 86, LDL 56, HDL 22 --> home meds include simvastatin - Hold Janumet; ISS with low dose with Accu-check access - Dietitian and simulation educator consul Un[employer] Weight Loss - Lost 13lbs since February 2017 - This could be 2/2 Pleural effusion +/- Chronic pancreatitis (Little to no intake due to pain with eating) - SCC hx/o on his left hand - H.Pylori negative - TSH 0.785 and FT4 1.16 Generalized Weakness - 2/2 Above - Will consult PT/OT Chronic: Impaired Vision/Hearing HTN PVD S/p Stent placement on left inner groin Hx/o H.Pylori Infection Psychosexual Dysfunction with Inhibited Sexual Excitement Pancreatitis (likely 2/2 chronic atherosclerosis with pending GI follow up this Tuesday) Pulmonary Insufficiency. 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 Mild-Moderate Spinal Degenerative Disease Plan: Admit to [facility] with Tele Resume Home Meds Routine AM Labs Vitamin D level pending RT/PT/OT consult Dietitian and simulation educator consult DVT/GI PPx: SCDs and H2B SW/CM for d/c planning Code status: CPR only <Jac To T - Last Filed: 08/10/17 08:25> - Patient Data Vitals - Most Recent: Last Vital Signs Temp 36.7 C 08/10/17 05:11 Pulse 66 08/10/17 05:11 Resp 18 08/10/17 05:11 BP 119/85 08/10/17 05:11 Pulse Ox 91 L 08/10/17 05:11 I&O - Last 24 Hours: Intake & Output 08/09/17 08/10/17 08/10/17 22:59 06:59 14:59 Intake Total 1520 550 Output Total 1700 1500 Balance -180 -950 Lab Results Last 24 Hours: Laboratory Results - last 24 hr 08/08/17 08/09/17 08/09/17 Range/Units 22:15 11:58 12:45 WBC (4.23-9.07) K/mm3 RBC (4.63-6.08) M/mm3 Hgb (13.7-17.5) gm/L Hct (40.1-51.0) % MCV (79.0-92.2) fl MCH (25.7-32.2) pg MCHC (32.2-35.5) g/dl RDW Std Deviation (35.1-43.9) fL Plt Count (163-337) K/mm3 MPV (9.4-12.3) fl Neut % (Auto) (34.0-67.9) % Lymph % (Auto) (21.8-53.1) % [place] % (Auto) (5.3-12.2) % Eos % (Auto) (0.8-7.0) Baso % (Auto) (0.1-1.2) % Neut # (Auto) (1.78-5.38) K/mm3 Lymph # (Auto) (1.32-3.57) K/mm3 [place] # (Auto) (0.30-0.82) K/mm3 Eos # (Auto) (0.04-0.54) K/mm3 Baso # (Auto) (0.01-0.08) K/mm3 Manual Slide Review D-Dimer, Quantitative (0.19-0.50) mg/L Sodium (136-145) mEq/L Potassium (3.5-5.1) mEq/L Chloride (98-107) mEq/L Carbon Dioxide (21-32) mEq/L Anion Gap (5-15) BUN (7-18) mg/dL Creatinine (0.7-1.3) mg/dL Est Cr Clr Drug Dosing mL/min Estimated GFR (MDRD) (>60) mL/min BUN/Creatinine Ratio (14-18) Glucose (80-115) mg/dL POC Glucose 268 H (80-115) mg/dL Calcium (8.5-10.1) mg/dL Magnesium (1.8-2.4) mg/dl CK-MB (CK-2) (0-3.6) ng/ml Troponin I (0.00-0.056) ng/mL C-Reactive Protein (<1.0) mg/dL Vitamin D 25-Hydroxy 19 L (30-100) ng/mL Body Fluid Site Fluid Type Thoracentesis fluid Fluid Volume ML Fluid Color Fluid Appearance Fluid pH 7.5 (4.5-10.0) Fluid WBC (0.20-0.60) k/mm*3 Fluid RBC (0.00-0.010) 10*6/uL Fluid Diff Comment Fluid Seg Neutrophils (0-25) % Fluid Lymphocytes (0-78) % Fluid Monocytes (0-71) % Fl Polymorphonucl Cell Fluid Glucose mg/dL Fluid Total Protein gm/dl Fluid LDH U/L 08/09/17 08/09/17 08/09/17 Range/Units 12:45 12:45 12:50 WBC (4.23-9.07) K/mm3 RBC (4.63-6.08) M/mm3 Hgb (13.7-17.5) gm/L Hct (40.1-51.0) % MCV (79.0-92.2) fl MCH (25.7-32.2) pg MCHC (32.2-35.5) g/dl RDW Std Deviation (35.1-43.9) fL Plt Count (163-337) K/mm3 MPV (9.4-12.3) fl Neut % (Auto) (34.0-67.9) % Lymph % (Auto) (21.8-53.1) % [place] % (Auto) (5.3-12.2) % Eos % (Auto) (0.8-7.0) Baso % (Auto) (0.1-1.2) % Neut # (Auto) (1.78-5.38) K/mm3 Lymph # (Auto) (1.32-3.57) K/mm3 [place] # (Auto) (0.30-0.82) K/mm3 Eos # (Auto) (0.04-0.54) K/mm3 Baso # (Auto) (0.01-0.08) K/mm3 Manual Slide Review D-Dimer, Quantitative (0.19-0.50) mg/L Sodium (136-145) mEq/L Potassium (3.5-5.1) mEq/L Chloride (98-107) mEq/L Carbon Dioxide (21-32) mEq/L Anion Gap (5-15) BUN (7-18) mg/dL Creatinine (0.7-1.3) mg/dL Est Cr Clr Drug Dosing mL/min Estimated GFR (MDRD) (>60) mL/min BUN/Creatinine Ratio (14-18) Glucose (80-115) mg/dL POC Glucose (80-115) mg/dL Calcium (8.5-10.1) mg/dL Magnesium (1.8-2.4) mg/dl CK-MB (CK-2) (0-3.6) ng/ml Troponin I (0.00-0.056) ng/mL C-Reactive Protein (<1.0) mg/dL Vitamin D 25-Hydroxy (30-100) ng/mL Body Fluid Site Right lung Fluid Type Thoracentesis fluid Thoracentesis fluid Thoracentesis fluid Fluid Volume 2500 ML Fluid Color Yellow Fluid Appearance Clear Fluid pH (4.5-10.0) Fluid WBC 1.47 H (0.20-0.60) k/mm*3 Fluid RBC 0.003 (0.00-0.010) 10*6/uL Fluid Diff Comment See note Fluid Seg Neutrophils 42.0 H (0-25) % Fluid Lymphocytes 18.0 (0-78) % Fluid Monocytes 3.0 (0-71) % Fl Polymorphonucl Cell Not Reportable Fluid Glucose 259 mg/dL Fluid Total Protein 3.2 gm/dl Fluid LDH 583 U/L 08/09/17 08/09/17 08/09/17 Range/Units 13:08 13:08 18:12 WBC (4.23-9.07) K/mm3 RBC (4.63-6.08) M/mm3 Hgb (13.7-17.5) gm/L Hct (40.1-51.0) % MCV (79.0-92.2) fl MCH (25.7-32.2) pg MCHC (32.2-35.5) g/dl RDW Std Deviation (35.1-43.9) fL Plt Count (163-337) K/mm3 MPV (9.4-12.3) fl Neut % (Auto) (34.0-67.9) % Lymph % (Auto) (21.8-53.1) % [place] % (Auto) (5.3-12.2) % Eos % (Auto) (0.8-7.0) Baso % (Auto) (0.1-1.2) % Neut # (Auto) (1.78-5.38) K/mm3 Lymph # (Auto) (1.32-3.57) K/mm3 [place] # (Auto) (0.30-0.82) K/mm3 Eos # (Auto) (0.04-0.54) K/mm3 Baso # (Auto) (0.01-0.08) K/mm3 Manual Slide Review D-Dimer, Quantitative 6.24 H (0.19-0.50) mg/L Sodium (136-145) mEq/L Potassium (3.5-5.1) mEq/L Chloride (98-107) mEq/L Carbon Dioxide (21-32) mEq/L Anion Gap (5-15) BUN (7-18) mg/dL Creatinine (0.7-1.3) mg/dL Est Cr Clr Drug Dosing mL/min Estimated GFR (MDRD) (>60) mL/min BUN/Creatinine Ratio (14-18) Glucose (80-115) mg/dL POC Glucose 181 H (80-115) mg/dL Calcium (8.5-10.1) mg/dL Magnesium (1.8-2.4) mg/dl CK-MB (CK-2) 0.5 (0-3.6) ng/ml Troponin I < 0.017 (0.00-0.056) ng/mL C-Reactive Protein (<1.0) mg/dL Vitamin D 25-Hydroxy (30-100) ng/mL Body Fluid Site Fluid Type Fluid Volume ML Fluid Color Fluid Appearance Fluid pH (4.5-10.0) Fluid WBC (0.20-0.60) k/mm*3 Fluid RBC (0.00-0.010) 10*6/uL Fluid Diff Comment Fluid Seg Neutrophils (0-25) % Fluid Lymphocytes (0-78) % Fluid Monocytes (0-71) % Fl Polymorphonucl Cell Fluid Glucose mg/dL Fluid Total Protein gm/dl Fluid LDH U/L 08/09/17 08/10/17 08/10/17 Range/Units 21:58 05:50 05:50 WBC 12.57 H (4.23-9.07) K/mm3 RBC 4.63 (4.63-6.08) M/mm3 Hgb 13.5 L (13.7-17.5) gm/L Hct 41.1 (40.1-51.0) % MCV 88.8 (79.0-92.2) fl MCH 29.2 (25.7-32.2) pg MCHC 32.8 (32.2-35.5) g/dl RDW Std Deviation 43.6 (35.1-43.9) fL Plt Count 509 H (163-337) K/mm3 MPV 9.9 (9.4-12.3) fl Neut % (Auto) 61.3 (34.0-67.9) % Lymph % (Auto) 21.3 L (21.8-53.1) % [place] % (Auto) 9.9 (5.3-12.2) % Eos % (Auto) 5.9 (0.8-7.0) Baso % (Auto) 0.6 (0.1-1.2) % Neut # (Auto) 7.72 H (1.78-5.38) K/mm3 Lymph # (Auto) 2.68 (1.32-3.57) K/mm3 [place] # (Auto) 1.24 H (0.30-0.82) K/mm3 Eos # (Auto) 0.74 H (0.04-0.54) K/mm3 Baso # (Auto) 0.07 (0.01-0.08) K/mm3 Manual Slide Review Abnormal smear D-Dimer, Quantitative (0.19-0.50) mg/L Sodium 136 (136-145) mEq/L Potassium 4.3 (3.5-5.1) mEq/L Chloride 101 (98-107) mEq/L Carbon Dioxide 27 (21-32) mEq/L Anion Gap 12.3 (5-15) BUN 8 (7-18) mg/dL Creatinine 0.7 (0.7-1.3) mg/dL Est Cr Clr Drug Dosing 111.53 mL/min Estimated GFR (MDRD) > 60 (>60) mL/min BUN/Creatinine Ratio 11.4 L (14-18) Glucose 212 H (80-115) mg/dL POC Glucose 190 H (80-115) mg/dL Calcium 8.9 (8.5-10.1) mg/dL Magnesium 2.2 (1.8-2.4) mg/dl CK-MB (CK-2) (0-3.6) ng/ml Troponin I (0.00-0.056) ng/mL C-Reactive Protein 6.1 H* (<1.0) mg/dL Vitamin D 25-Hydroxy (30-100) ng/mL Body Fluid Site Fluid Type Fluid Volume ML Fluid Color Fluid Appearance Fluid pH (4.5-10.0) Fluid WBC (0.20-0.60) k/mm*3 Fluid RBC (0.00-0.010) 10*6/uL Fluid Diff Comment Fluid Seg Neutrophils (0-25) % Fluid Lymphocytes (0-78) % Fluid Monocytes (0-71) % Fl Polymorphonucl Cell Fluid Glucose mg/dL Fluid Total Protein gm/dl Fluid LDH U/L 08/10/17 Range/Units 06:51 WBC (4.23-9.07) K/mm3 RBC (4.63-6.08) M/mm3 Hgb (13.7-17.5) gm/L Hct (40.1-51.0) % MCV (79.0-92.2) fl MCH (25.7-32.2) pg MCHC (32.2-35.5) g/dl RDW Std Deviation (35.1-43.9) fL Plt Count (163-337) K/mm3 MPV (9.4-12.3) fl Neut % (Auto) (34.0-67.9) % Lymph % (Auto) (21.8-53.1) % [place] % (Auto) (5.3-12.2) % Eos % (Auto) (0.8-7.0) Baso % (Auto) (0.1-1.2) % Neut # (Auto) (1.78-5.38) K/mm3 Lymph # (Auto) (1.32-3.57) K/mm3 [place] # (Auto) (0.30-0.82) K/mm3 Eos # (Auto) (0.04-0.54) K/mm3 Baso # (Auto) (0.01-0.08) K/mm3 Manual Slide Review D-Dimer, Quantitative (0.19-0.50) mg/L Sodium (136-145) mEq/L Potassium (3.5-5.1) mEq/L Chloride (98-107) mEq/L Carbon Dioxide (21-32) mEq/L Anion Gap (5-15) BUN (7-18) mg/dL Creatinine (0.7-1.3) mg/dL Est Cr Clr Drug Dosing mL/min Estimated GFR (MDRD) (>60) mL/min BUN/Creatinine Ratio (14-18) Glucose (80-115) mg/dL POC Glucose 185 H (80-115) mg/dL Calcium (8.5-10.1) mg/dL Magnesium (1.8-2.4) mg/dl CK-MB (CK-2) (0-3.6) ng/ml Troponin I (0.00-0.056) ng/mL C-Reactive Protein (<1.0) mg/dL Vitamin D 25-Hydroxy (30-100) ng/mL Body Fluid Site Fluid Type Fluid Volume ML Fluid Color Fluid Appearance Fluid pH (4.5-10.0) Fluid WBC (0.20-0.60) k/mm*3 Fluid RBC (0.00-0.010) 10*6/uL Fluid Diff Comment Fluid Seg Neutrophils (0-25) % Fluid Lymphocytes (0-78) % Fluid Monocytes (0-71) % Fl Polymorphonucl Cell Fluid Glucose mg/dL Fluid Total Protein gm/dl Fluid LDH U/L [place] Results Last 24 Hours: Microbiology 08/09/17 04:55 Streptococcus pneumoniae Antigen (M - Final Urine 08/09/17 00:07 Respiratory Virus Panel (PCR) - Final Nasopharyngeal Swab Med Orders - Current: Current Medications Discontinued Medications Acetaminophen (Tylenol) 650 mg PO Q4H PRN PRN Reason: Pain (Mild 1-3)/fever Hydrocodone Bitart/Acetaminophen ([place] 325-5 Mg) 1 tab PO Q4H PRN PRN Reason: Pain (moderate 4-6) Last Admin: 08/10/17 06:47 Dose: 1 tab Albuterol/Ipratropium (Duoneb 3.0-0.5 Mg/3 Ml) 3 ml NEB Q4H PRN PRN Reason: Shortness Of Breath/wheezing Last Admin: 08/09/17 20:12 Dose: 3 ml Aspirin (Halfprin) 81 mg PO DAILY [facility] Last Admin: 08/09/17 09:28 Dose: 81 mg Benzonatate (Tessalon Perles) 200 mg PO BID [facility] Last Admin: 08/09/17 21:51 Dose: 200 mg Bisacodyl (Dulcolax) 5 mg PO DAILY PRN PRN Reason: Constipation Dextrose/Water (Dextrose 50% In Water) 50 ml IVPUSH ASDIRECTED PRN PRN Reason: Hypoglycemia Docusate Sodium (Colace) 100 mg PO BID PRN PRN Reason: Constipation Famotidine (Pepcid) 20 mg IVPUSH ONETIME ONE Stop: 08/09/17 00:23 Last Admin: 08/09/17 01:24 Dose: 20 mg Famotidine (Pepcid) 20 mg PO BID [facility] Last Admin: 08/09/17 21:50 Dose: 20 mg Glipizide (Glucotrol Xl) 5 mg PO DAILY [facility] Last Admin: 08/09/17 09:28 Dose: 5 mg Guaifenesin/Phenylephrine HCl (Robitussin Dm) 10 ml PO Q4H PRN PRN Reason: Cough Heparin Sodium (Porcine) (Heparin Sodium) 5,000 units SUBCUT Q12H [facility] Last Admin: 08/09/17 21:50 Dose: 5,000 units Hydralazine HCl (Apresoline) 20 mg IVPUSH Q4H PRN PRN Reason: Hypertension Promethazine HCl 12.5 mg/ (Sodium Chloride) 50.5 mls @ 100 mls/hr IV Q6H PRN PRN Reason: Nausea/Vomiting Levofloxacin/Dextrose 750 mg/ (Premix) 150 mls @ 100 mls/hr IV ONETIME ONE Stop: 08/08/17 23:29 Last Admin: 08/08/17 23:37 Dose: 100 mls/hr Levofloxacin/Dextrose 750 mg/ (Premix) 150 mls @ 100 mls/hr IV Q24H [facility] Last Admin: 08/09/17 21:51 Dose: 100 mls/hr Sodium Chloride (Normal Saline) 500 mls @ 999 mls/hr IV .BOLUS ONE Stop: 08/09/17 17:12 Last Admin: 08/09/17 16:58 Dose: 999 mls/hr Sodium Chloride (Normal Saline) 100 mls @ 65 mls/hr IV ASDIRECTED [facility] Last Admin: 08/09/17 17:34 Dose: 65 mls/hr Insulin Aspart (Novolog) 0 unit SUBCUT QIDACANDBED [facility]; Protocol Last Admin: 08/10/17 07:00 Dose: Not Given Iopamidol (Isovue-370 (76%)) 100 ml IVPUSH ONETIME ONE Stop: 08/09/17 16:57 Last Admin: 08/09/17 17:34 Dose: 100 ml Levofloxacin (Levaquin) 750 mg PO Q24H STA Stop: 08/10/17 06:33 Last Admin: 08/10/17 06:48 Dose: 750 mg Lidocaine HCl (Xylocaine 1%) Confirm Administered Dose 50 ml .ROUTE .STK-MED ONE Stop: 08/09/17 12:20 Last Admin: 08/09/17 13:31 Dose: 10 ml Lisinopril (Prinivil) 10 mg PO DAILY [facility] Last Admin: 08/09/17 09:28 Dose: 10 mg Lorazepam (Ativan) 2 mg IVPUSH Q4H PRN PRN Reason: Seizures Lorazepam (Ativan) 1 mg IV Q6H PRN PRN Reason: Anxiety Magnesium Sulfate (Pharmacy To Dose - Magnesium Replacement) 1 dose .XX ASDIRECTED [facility] Metformin HCl (Glucophage) 250 mg PO BID [facility] Last Admin: 08/09/17 18:16 Dose: Not Given Metoprolol Tartrate (Lopressor) 5 mg IVPUSH Q4H PRN PRN Reason: Tachycardia Miscellaneous Information (Remove Patch) 1 ea TRDERM DAILY [facility] Last Admin: 08/09/17 09:53 Dose: Not Given Morphine Sulfate (Morphine) 1 mg IVPUSH Q4H PRN PRN Reason: Other Stop: 08/09/17 21:56 Last Admin: 08/09/17 12:45 Dose: 2 mg Morphine Sulfate (Morphine) Confirm Administered Dose 4 mg .ROUTE .STK-MED ONE Stop: 08/09/17 12:44 Last Admin: 08/09/17 13:00 Dose: 4 mg Morphine Sulfate (Morphine) Confirm Administered Dose 4 mg .ROUTE .STK-MED ONE Stop: 08/09/17 12:45 Last Admin: 08/09/17 13:34 Dose: 1 mg Nicotine (Habitrol) 21 mg TRDERM DAILY [facility] Last Admin: 08/09/17 09:53 Dose: Not Given Nicotine (Habitrol) 21 mg TRDERM ONETIME ONE Stop: 08/08/17 22:01 Last Admin: 08/08/17 23:37 Dose: Not Given Ondansetron HCl (Zofran) 4 mg IV Q6H PRN PRN Reason: Nausea/Vomiting Pneumococcal Polyvalent Vaccine (Pneumovax 23) 0.5 ml IM .ONCE ONE Stop: 08/09/17 07:17 Last Admin: 08/10/17 07:47 Dose: Not Given Polyethylene Glycol (Miralax) 17 gm PO DAILY PRN PRN Reason: Constipation Potassium Chloride (Pharmacy To Dose - Potassium Replacement) 1 dose .XX ASDIRECTED [facility] Saccharomyces Boulardii (Florastor) 250 mg PO DAILY [facility] Last Admin: 08/09/17 09:28 Dose: 250 mg Saccharomyces Boulardii (Florastor) 500 mg PO DAILY ONE Stop: 08/08/17 22:01 Last Admin: 08/08/17 23:36 Dose: 500 mg Senna/Docusate Sodium (Senna Plus) 1 tab PO BID PRN PRN Reason: Constipation Simvastatin (Zocor) 10 mg PO DAILY [facility] Last Admin: 08/09/17 09:28 Dose: 10 mg Sodium Chloride (Saline Flush) 10 ml FLUSH ONETIME PRN PRN Reason: IV FLUSH Last Admin: 08/09/17 17:34 Dose: 10 ml Temazepam (Restoril) 15 mg PO BEDTIME PRN PRN Reason: Sleep - Problem List & Annotations (1) Pneumonia SNOMED Code(s): 697311535 Code(s): J18.9 - PNEUMONIA, UNSPECIFIED ORGANISM Status: Acute Qualifiers: Pneumonia type: due to unspecified organism Laterality: right Lung location: lower lobe of lung Qualified Code(s): J18.1 - Lobar pneumonia, unspecified organism (2) Pulmonary insufficiency SNOMED Code(s): 605738155 Code(s): J98.4 - OTHER DISORDERS OF LUNG Status: Chronic Annotation/ Comment:: - He is a smoker for 50 years --> Likely has Obstructive Lung Disease - PFT outpatient and Emphymatous changes on CTA (3) Pleural cavity effusion SNOMED Code(s): 34636378 Code(s): J90 - PLEURAL EFFUSION, NOT ELSEWHERE CLASSIFIED Status: Resolved Annotation/Comment:: - Awaiting 2D echo report; likely be fazed to his PCP's office since he will be leaving early today to get to his GI appointment in [place] (4) Status post thoracentesis SNOMED Code(s): 252816851, 347810941 Code(s): Z98.890 - OTHER SPECIFIED POSTPROCEDURAL STATES Status: Inactive (5) Hyperglycemia due to type 2 diabetes mellitus SNOMED Code(s): 346887343055089, 767137360849438 Code(s): E11.65 - TYPE 2 DIABETES MELLITUS WITH HYPERGLYCEMIA Status: Acute Qualifiers: Diabetes mellitus computer terminal operator insulin use: without computer terminal operator use Qualified Code(s): E11.65 - Type 2 diabetes mellitus with hyperglycemia (6) Weight loss, unintentional SNOMED Code(s): 735742953 Code(s): R63.4 - ABNORMAL WEIGHT LOSS Status: Acute Annotation/Comment:: - Likley related to Pleural Effusion - Has pending Pancreatic eval in [place] today (7) Weakness generalized SNOMED Code(s): 39141345 Code(s): R53.1 - WEAKNESS Status: Resolved - My Orders Last 24 Hours: My Active Orders 08/09/17 12:45 CULTURE AFB AND SMEAR [MREF] Routine CULTURE BODY FLUID + SMEAR [RM] Routine MISC TEST Routine 08/09/17 12:51 EKG 12 Lead [EKG Documentation Completion] [RC] STAT 08/09/17 17:45 RALF PREP [MYC] Routine 08/10/17 06:47 Ready for Discharge [RC] PER UNIT ROUTINE - Plan Plan:: The patient was seen and examined at [facility] in concert with the PA student. The assessment and plans were discussed and agreed upon with me.
[2017-08-09] MEDS ORDERED: Sodium Chloride 0.9% 500 ML IV ONE (16:42)
[2017-08-09] MEDS ORDERED: Iopamidol 755 Mg/ML 100 ML Bottle IVPUSH ONE (16:56)
[2017-08-09] MEDS ORDERED: Sodium Chloride 0.9% 10 ML Syringe FLUSH PRN (16:56)
[2017-08-09] MEDS ORDERED: Sodium Chloride 0.9% 100 ML IV SCH (17:00)
--- NOTE | 2017-08-09 17:38 | PCM.SN ---
- Free Text/Narrative Note: Patient had an episode of acute respiratory distress near the end of the procedure. We immediately stop the thoracentesis and proceeded to tend to him. His O2 sat was in the mid-90s but he was having a significant anterior chest pain with dyspnea. Right away, we cranked up his supplemental O2, called RT and ordered stat CXR, EKG, CE x1, D-Dimer level and gave him 5 mg IVP Morphine x 1. His symptoms gradually improved after Morphine was given. His CXR showed right basilar atelectasis w/o obvious pneumothorax. EKG showed sinus rhythm w/o acute ST-T wave changes, CE x 1 negative but his D-Dimer was markedly high at 6.24. Given that he just had an episode of acute distress, we went ahead and ordered a Chest CTA to r/o PE pending results.
--- NOTE | 2017-08-09 17:59 | CT ---
CT chest Technique: Multiple axial sections through the chest are obtained. Intravenous contrast was utilized. Study has been performed as a pulmonary angiogram protocol. Findings: Pulmonary arteries are well-opacified. No filling defects are seen to indicate pulmonary embolism. Area of consolidation is seen within the right lung base. Small right sided pleural effusion is seen. Heart is mildly enlarged. Minimal coronary artery calcification is seen. Mediastinal lymph nodes are seen which are believed to be within normal limits. Emphysematous changes are seen within both lungs. Minimal left basilar atelectasis is seen. Impression: 1. No findings of pulmonary embolism. 2. Consolidation within right lung base possibly due to pneumonia. 3. Small right sided pleural effusion. 4. Emphysematous change and other incidental findings. Diagnostic code #3
[2017-08-09] MEDS: Acetaminophen/HYDROcodone 325-5 MG Tab PO PRN (19:04)
[2017-08-09] MEDS ORDERED: Heparin Sodium 5,000 Units/ML Vial SUBCUT SCH (21:00)
[2017-08-09] MEDS ORDERED: metFORMIN 500 MG Tab PO SCH (21:00)
[2017-08-09] MEDS ORDERED: Levofloxacin/Dextrose 5%-Water 750 MG in Premix Bag 1 BAG IV SCH (22:00)
[2017-08-10] MEDS ORDERED: Levofloxacin 750 MG Tab PO STA (06:32)
[2017-08-10] MEDS: Acetaminophen/HYDROcodone 325-5 MG Tab PO PRN (06:47)
[2017-08-10] MEDS: Insulin Aspart 100 Units/ML 3 ML Pen SUBCUT SCH (07:00)
--- NOTE | 2017-08-10 11:39 | PCM.DCSUM1 ---
<Kelley Alvarez - Last Filed: 08/10/17 13:20> Discharge Summary - Hospital Course HPI Initial Comments: This is a 62 yo white male who looks older than his stated age with past medical hx/o Impaired Vision/Hearing, HTN, PVD S/p Stent placement on left inner groin, Hx/o H. 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 Patient was initially seen at [facility] with complaints of having a cold that started this past Tuesday. His chief of complaint is associated with chest congestion, thoracic pain 2/2 persistent coughing, nasal congestion, and mixed: dry and productive cough with greenish colored sputum. His symptoms have progressively gotten worse that it hurts his back so bad from coughing. He took Dayquil and 's ProAir to improve his cold symptoms. He also sought a chiropractor's professional opinion for his significant back pain but according to him it did not help much. His initial work up was done at the [facility] with findings remarkable for leukocytosis with considerably elevated absolute neutrophils levels. His chest x -ray report shows moderate pleural effusion or consolidation in the right base Patient is being admitted for medical treatment of PNA/Bronchitis with Moderately Large Right Sided Pleural Effusion. He is CPR only. Diagnosis: Stroke: No Modified Gilpin Scale: No Symptoms at All Modified Milady Scale Score: 0 - Discharge Data Discharge Date: 08/10/17 Discharge Disposition: Home, Self-Care 01 Condition: Good - Patient Summary/Data Operative Procedure(s) Performed: Right sided thoracentesis Complications: None Consults: Consultations 08/08/17 21:59 Consult to Diabetic Nurse Specialist [CONS] Routine Consult to Shake Out Worker [CONS] Routine OT Evaluation and Treatment [CONS] Routine PT Evaluation and Treatment [CONS] Routine Respiratory Care Assess and Treatment [CONS] Routine Recommended Follow-up Testing/Procedures: Chest xray in 1-2 weeks PFTs to be assessed PCP in 1-2 weeks Planned Operative Procedure(s) after DC: None Hospital Course: Assessment/Plan: Acute: Community Acquired/Aspiration PNA vs Chronic Bronchitis - Superimposed by Moderately Large Right Sided Pleural Effusion - Risk Factors: Pulmonary Insufficiency and Active Smoker - Cough is mixed in nature: dry and sometimes could be wet with greenish sputum - CURB 65 is not indicated; PSI/PORT Score is 83 points: Risk Class III, 0.9- 2.8% mortality, outpatient or inpatient treatment, depending on clinical judgment - WBC 14.17K (was 16.6.K), CRP 6.5 (was 7.4) Absolute Neutrophils 12.5% - Clinic CXR report 08/09/27: a moderate new right sided pleural effusion has developed or consolidated in the right base - Sputum Cx pending - Mycoplasma pneumoniae and strep pneumoniae Ag negative - IV Levaquin 750 mg IV daily, Decongestant/Expectorant Q4H PRN, and Tessalon Perles 200 mg po BID --> Levaquin 750 mg po daily x 4 days at d/c - Serial CXR as indicated and FV/IS as directed Moderately Large Pleural Effusion - New per [facility] notes - 2/2 PNA vs Heart Failure - He is not on blood thinners - Supplemental O2 PRN and IV Morphine PRN for Dyspnea and SOB - 2D echo to r/o Heart Failure --> read as EF 45-50% and mild increase in LV size - DVT prophylaxis: SCDs for now - Therapeutic and Diagnostic Right Sided Thoracentesis performed today with 2525 ml straw colored pleural fluid removed; he did experience pain at site of thoracentesis and chest pain after the procedure --> chest xray s/p thoracentesis was read as no pneumothorax and EKG was HR 67 and 1st degree HB - His pain is likely 2/2 reexpansion syndrome - Will monitor closely for reexpansion pulmonary edema --> supplemental O2 , BiPap prn, patient to lie on unaffected side - Pleural fluid sent for analysis Hyperglycemia with DM2 - Patient reports that he normally runs in the 200s on average - BS on admission was 256 and UA with 2+ glucose - Has been 7 years he was first diagnosed - He is not on steroids - DM Meds: Metformin 500 mg po daily, Janument daily and Glipizide ER 5 mg daily - A1C- 9.8 - UA with microalbumin 11.7 - Lipid panel: Total cholesterol 86, LDL 56, HDL 22 --> home meds include simvastatin - Hold Janumet; ISS with low dose with Accu-check access - Dietitian and community health educator consult Unintentional Weight Loss - Lost 13lbs since February 2017 - This could be 2/2 Pleural effusion +/- Chronic pancreatitis (Little to no intake due to pain with eating) - SCC hx/o on his left hand - H.Pylori negative - TSH 0.785 and FT4 1.16 Generalized Weakness - 2/2 Above - Will consult PT/OT Chronic: Impaired Vision/Hearing HTN PVD S/p Stent placement on left inner groin Hx/o H.Pylori Infection Psychosexual Dysfunction with Inhibited Sexual Excitement Pancreatitis (likely 2/2 chronic atherosclerosis with pending GI follow up this Tuesday) Pulmonary Insufficiency. 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 Mild-Moderate Spinal Degenerative Disease Plan: Admit to [facility] with Tele Resume Home Meds Routine AM Labs Vitamin D level pending RT/PT/OT consult Dietitian and community health educator consult DVT/GI PPx: SCDs and H2B SW/CM for d/c planning Code status: CPR only PCP: Dr. Ziyad Alvares [facility] Course: [place] was a direct admit from [facility] for medical treatment of pneumonia with moderate right sided pleural effusion. He is a current tobacco smoker. He has improved during his stay. His initial work up was done at the [facility] with findings remarkable for leukocytosis with considerably elevated absolute neutrophils levels. His chest x-ray report shows moderate pleural effusion or consolidation in the right base. Levaquin 750 mg IV daily was initiated. Strep pneumo Ag, mycoplasma pneumoniae, and viral panel were negative. Therapeutic and diagnostic right sided thoracentesis performed with 2525 ml straw colored pleural fluid removed. Patient did experience pain at site of thoracentesis and chest pain after the procedure. Chest xray s/p thoracentesis was read as no pneumothorax and EKG was HR 67 and 1st degree HB. His pain was likely 2/2 reexpansion syndrome. D-dimer came back elevated at 6.24 therefore chest CTA was ordered and negative for PE. He was monitored closely for reexpansion pulmonary edema with supplemental O2, BiPap prn, and patient to lie on unaffected side. Pleural fluid sent for analysis and is pending. 2D echo report read as EF 45-50% and mild increase in LV size. PCP to further evaluate with possible consideration for cardiology referral. In addition to the above, his glucose was 256 on admission and UA showed 2+ glucose. Hgb A1c drawn and was 9.8. Patient met with the community health educator and dietitian. He is on Metformin 500 mg po daily, Janument daily and Glipizide ER 5 mg daily at home. Adjustments to be made by PCP. Patient reported 13# unintentional weight loss since February 2017 and could be 2/2 pleural effusion +/- chronic pancreatitis ( little to no intake due to pain with eating). H. pylori was negative and TSH/ FT4 normal. New medications at discharge: oxycodone 10 mg po q 6 hr prn pain, albuterol sulfate 6.7 gm inhalation q 4 hr prn, ergocalciferol 50,000 units po as directed (1 tab po weekly for 4 weeks then monthly for 4 months and re-check vitamin D level thereafter), levofloxacin 750 mg po daily x 4 days, simvastatin 40 mg po q HS. PCP to re-check vitamin D following supplementation in approximately 5 months. Recommended patient have outpatient PFTs assessed. He is to see his PCP in 1-2 weeks. Patient is stable and ready for discharge today. Patient is agreeable to this plan. - Patient Instructions Diet: Heart Healthy Diet, Usual Diet as Tolerated Activity: As Tolerated Driving: May Drive Today Showering/Bathing: May Shower Notify Provider of: Fever, Increased Pain, Nausea and/or Vomiting Other/Special Instructions: - Please take all new medications as directed. - Resume all home medications and routine activities as tolerated. - Recommend repeat CXR in 2 weeks to assess resolution of PNA. - Recommnend outpatient PFT to assess underlying pulmonary insufficiency. - Recommend Lifestyle Modification: regular exercise, eat properly, stop smoking and monitor your glucose to improve your overall health. - Call your family doctor for any questions or concerns after discharge. - Follow up with PCP in 1-2 week. - Come back or seek immediate care should your symptoms persist or get worse - Discharge Plan Prescriptions/Med Rec: oxyCODONE HCl [Oxycodone HCl] 10 mg PO Q6HR PRN #18 tablet PRN Reason: Pleuritic Pain S/p Thorancetes Albuterol Sulfate [Proventil Hfa] 6.7 gm IH Q4H PRN #1 [email or web address] PRN Reason: Pulmonary Insufficiency Ergocalciferol (Vitamin D2) [Drisdol] 50,000 unit PO ASDIRECTED #8 capsule Levofloxacin [Levaquin] 750 mg PO DAILY #4 tab Saccharomyces Boulardii [Florastor] 250 mg PO DAILY #4 cap Simvastatin [Zocor] 40 mg PO BEDTIME #30 tablet Home Medications: Home Meds Aspirin [Ecotrin] 81 mg PO DAILY 08/08/17 [History] Lisinopril [Prinivil] 10 mg PO DAILY 08/08/17 [History] Simvastatin. 1 tab PO DAILY 08/08/17 [History] glipiZIDE [Glipizide ER] 5 mg PO DAILY 08/08/17 [History] Albuterol Sulfate [Proventil Hfa] 6.7 gm IH Q4H PRN #1 hfa.aer.ad 08/10/17 [Rx] Ergocalciferol (Vitamin D2) [Drisdol] 50,000 unit PO ASDIRECTED #8 capsule 08/10 [Rx] Levofloxacin [Levaquin] 750 mg PO DAILY #4 tab 08/10/17 [Rx] Saccharomyces Boulardii [Florastor] 250 mg PO DAILY #4 cap 08/10/17 [Rx] Simvastatin [Zocor] 40 mg PO BEDTIME #30 tablet 08/10/17 [Rx] metFORMIN [Glucophage XR] 500 mg PO BEDTIME #0 08/10/17 [Rx] oxyCODONE HCl [Oxycodone HCl] 10 mg PO Q6HR PRN #18 tablet 08/10/17 [Rx] sitaGLIPtin Phos/Metformin HCl [Janumet 50-1,000 MG] 1 tab PO DAILY #0 08/10/17 [Rx] Patient Handouts: Steps to Quit Smoking Referrals: Ziyad Alvares Jr, MD [Primary Care Provider] - - Discharge Summary/Plan Comment DC Time >30 min.: Yes (45) - General Info Date of Service: 08/10/17 Admission Dx/Problem (Free Text: Admission Diagnosis/Problem Admission Diagnosis/Problem Pneumonia Subjective Update: In to see [place] today. He is on 2-3 L O2 NC. He does not appear in acute respiratory distress. He reports slight dyspnea. Denies chest pain and he has no GI/ complaints. Functional Status: Reports: Pain Controlled, Tolerating Diet, Ambulating, Urinating, Incentive Spirometry - Review of Systems General: Reports: No Symptoms. Denies: Fever, Weakness HEENT: Reports: No Symptoms, Sinus Congestion (mild ). Denies: Sore Throat Pulmonary: Reports: No Symptoms. Denies: Shortness of Breath, Cough Cardiovascular: Reports: No Symptoms. Denies: Chest Pain, Palpitations, Edema, Lightheadedness Gastrointestinal: Reports: No Symptoms, Decreased Appetite. Denies: Abdominal Pain, Constipation, Diarrhea, Nausea, Vomiting Genitourinary: Reports: No Symptoms. Denies: Dysuria, Frequency Musculoskeletal: Reports: No Symptoms. Denies: Joint Pain Skin: Reports: No Symptoms. Denies: Cyanosis, Pallor Neurological: Reports: No Symptoms. Denies: Confusion, Dizziness, Headache Psychiatric: Reports: No Symptoms. Denies: Confusion, Depression - Patient Data Vitals - Most Recent: Last Vital Signs Temp 98.1 F 08/10/17 05:11 Pulse 66 08/10/17 05:11 Resp 18 08/10/17 05:11 BP 119/85 08/10/17 05:11 Pulse Ox 91 L 08/10/17 05:11 Weight - Most Recent: 83.915 kg I&O - Last 24 hours: Intake & Output 08/09/17 08/10/17 08/10/17 22:59 06:59 14:59 Intake Total 1520 550 Output Total 1700 1500 Balance -180 -950 Lab Results - Last 24 hrs: Laboratory Results - last 24 hr 08/08/17 08/09/17 08/09/17 Range/Units 22:15 11:58 12:45 WBC (4.23-9.07) K/mm3 RBC (4.63-6.08) M/mm3 Hgb (13.7-17.5) gm/L Hct (40.1-51.0) % MCV (79.0-92.2) fl MCH (25.7-32.2) pg MCHC (32.2-35.5) g/dl RDW Std Deviation (35.1-43.9) fL Plt Count (163-337) K/mm3 MPV (9.4-12.3) fl Neut % (Auto) (34.0-67.9) % Lymph % (Auto) (21.8-53.1) % [place] % (Auto) (5.3-12.2) % Eos % (Auto) (0.8-7.0) Baso % (Auto) (0.1-1.2) % Neut # (Auto) (1.78-5.38) K/mm3 Lymph # (Auto) (1.32-3.57) K/mm3 [place] # (Auto) (0.30-0.82) K/mm3 Eos # (Auto) (0.04-0.54) K/mm3 Baso # (Auto) (0.01-0.08) K/mm3 Manual Slide Review D-Dimer, Quantitative (0.19-0.50) mg/L Sodium (136-145) mEq/L Potassium (3.5-5.1) mEq/L Chloride (98-107) mEq/L Carbon Dioxide (21-32) mEq/L Anion Gap (5-15) BUN (7-18) mg/dL Creatinine (0.7-1.3) mg/dL Est Cr Clr Drug Dosing mL/min Estimated GFR (MDRD) (>60) mL/min BUN/Creatinine Ratio (14-18) Glucose (80-115) mg/dL POC Glucose 268 H (80-115) mg/dL Calcium (8.5-10.1) mg/dL Magnesium (1.8-2.4) mg/dl CK-MB (CK-2) (0-3.6) ng/ml Troponin I (0.00-0.056) ng/mL C-Reactive Protein (<1.0) mg/dL Vitamin D 25-Hydroxy 19 L (30-100) ng/mL Body Fluid Site Fluid Type Thoracentesis fluid Fluid Volume ML Fluid Color Fluid Appearance Fluid pH 7.5 (4.5-10.0) Fluid WBC (0.20-0.60) k/mm*3 Fluid RBC (0.00-0.010) 10*6/uL Fluid Diff Comment Fluid Seg Neutrophils (0-25) % Fluid Lymphocytes (0-78) % Fluid Monocytes (0-71) % Fl Polymorphonucl Cell Fluid Glucose mg/dL Fluid Total Protein gm/dl Fluid LDH U/L 08/09/17 08/09/17 08/09/17 Range/Units 12:45 12:45 12:50 WBC (4.23-9.07) K/mm3 RBC (4.63-6.08) M/mm3 Hgb (13.7-17.5) gm/L Hct (40.1-51.0) % MCV (79.0-92.2) fl MCH (25.7-32.2) pg MCHC (32.2-35.5) g/dl RDW Std Deviation (35.1-43.9) fL Plt Count (163-337) K/mm3 MPV (9.4-12.3) fl Neut % (Auto) (34.0-67.9) % Lymph % (Auto) (21.8-53.1) % [place] % (Auto) (5.3-12.2) % Eos % (Auto) (0.8-7.0) Baso % (Auto) (0.1-1.2) % Neut # (Auto) (1.78-5.38) K/mm3 Lymph # (Auto) (1.32-3.57) K/mm3 [place] # (Auto) (0.30-0.82) K/mm3 Eos # (Auto) (0.04-0.54) K/mm3 Baso # (Auto) (0.01-0.08) K/mm3 Manual Slide Review D-Dimer, Quantitative (0.19-0.50) mg/L Sodium (136-145) mEq/L Potassium (3.5-5.1) mEq/L Chloride (98-107) mEq/L Carbon Dioxide (21-32) mEq/L Anion Gap (5-15) BUN (7-18) mg/dL Creatinine (0.7-1.3) mg/dL Est Cr Clr Drug Dosing mL/min Estimated GFR (MDRD) (>60) mL/min BUN/Creatinine Ratio (14-18) Glucose (80-115) mg/dL POC Glucose (80-115) mg/dL Calcium (8.5-10.1) mg/dL Magnesium (1.8-2.4) mg/dl CK-MB (CK-2) (0-3.6) ng/ml Troponin I (0.00-0.056) ng/mL C-Reactive Protein (<1.0) mg/dL Vitamin D 25-Hydroxy (30-100) ng/mL Body Fluid Site Right lung Fluid Type Thoracentesis fluid Thoracentesis fluid Thoracentesis fluid Fluid Volume 2500 ML Fluid Color Yellow Fluid Appearance Clear Fluid pH (4.5-10.0) Fluid WBC 1.47 H (0.20-0.60) k/mm*3 Fluid RBC 0.003 (0.00-0.010) 10*6/uL Fluid Diff Comment See note Fluid Seg Neutrophils 42.0 H (0-25) % Fluid Lymphocytes 18.0 (0-78) % Fluid Monocytes 3.0 (0-71) % Fl Polymorphonucl Cell Not Reportable Fluid Glucose 259 mg/dL Fluid Total Protein 3.2 gm/dl Fluid LDH 583 U/L 08/09/17 08/09/17 08/09/17 Range/Units 13:08 13:08 18:12 WBC (4.23-9.07) K/mm3 RBC (4.63-6.08) M/mm3 Hgb (13.7-17.5) gm/L Hct (40.1-51.0) % MCV (79.0-92.2) fl MCH (25.7-32.2) pg MCHC (32.2-35.5) g/dl RDW Std Deviation (35.1-43.9) fL Plt Count (163-337) K/mm3 MPV (9.4-12.3) fl Neut % (Auto) (34.0-67.9) % Lymph % (Auto) (21.8-53.1) % [place] % (Auto) (5.3-12.2) % Eos % (Auto) (0.8-7.0) Baso % (Auto) (0.1-1.2) % Neut # (Auto) (1.78-5.38) K/mm3 Lymph # (Auto) (1.32-3.57) K/mm3 [place] # (Auto) (0.30-0.82) K/mm3 Eos # (Auto) (0.04-0.54) K/mm3 Baso # (Auto) (0.01-0.08) K/mm3 Manual Slide Review D-Dimer, Quantitative 6.24 H (0.19-0.50) mg/L Sodium (136-145) mEq/L Potassium (3.5-5.1) mEq/L Chloride (98-107) mEq/L Carbon Dioxide (21-32) mEq/L Anion Gap (5-15) BUN (7-18) mg/dL Creatinine (0.7-1.3) mg/dL Est Cr Clr Drug Dosing mL/min Estimated GFR (MDRD) (>60) mL/min BUN/Creatinine Ratio (14-18) Glucose (80-115) mg/dL POC Glucose 181 H (80-115) mg/dL Calcium (8.5-10.1) mg/dL Magnesium (1.8-2.4) mg/dl CK-MB (CK-2) 0.5 (0-3.6) ng/ml Troponin I < 0.017 (0.00-0.056) ng/mL C-Reactive Protein (<1.0) mg/dL Vitamin D 25-Hydroxy (30-100) ng/mL Body Fluid Site Fluid Type Fluid Volume ML Fluid Color Fluid Appearance Fluid pH (4.5-10.0) Fluid WBC (0.20-0.60) k/mm*3 Fluid RBC (0.00-0.010) 10*6/uL Fluid Diff Comment Fluid Seg Neutrophils (0-25) % Fluid Lymphocytes (0-78) % Fluid Monocytes (0-71) % Fl Polymorphonucl Cell Fluid Glucose mg/dL Fluid Total Protein gm/dl Fluid LDH U/L 08/09/17 08/10/17 08/10/17 Range/Units 21:58 05:50 05:50 WBC 12.57 H (4.23-9.07) K/mm3 RBC 4.63 (4.63-6.08) M/mm3 Hgb 13.5 L (13.7-17.5) gm/L Hct 41.1 (40.1-51.0) % MCV 88.8 (79.0-92.2) fl MCH 29.2 (25.7-32.2) pg MCHC 32.8 (32.2-35.5) g/dl RDW Std Deviation 43.6 (35.1-43.9) fL Plt Count 509 H (163-337) K/mm3 MPV 9.9 (9.4-12.3) fl Neut % (Auto) 61.3 (34.0-67.9) % Lymph % (Auto) 21.3 L (21.8-53.1) % [place] % (Auto) 9.9 (5.3-12.2) % Eos % (Auto) 5.9 (0.8-7.0) Baso % (Auto) 0.6 (0.1-1.2) % Neut # (Auto) 7.72 H (1.78-5.38) K/mm3 Lymph # (Auto) 2.68 (1.32-3.57) K/mm3 [place] # (Auto) 1.24 H (0.30-0.82) K/mm3 Eos # (Auto) 0.74 H (0.04-0.54) K/mm3 Baso # (Auto) 0.07 (0.01-0.08) K/mm3 Manual Slide Review Abnormal smear D-Dimer, Quantitative (0.19-0.50) mg/L Sodium 136 (136-145) mEq/L Potassium 4.3 (3.5-5.1) mEq/L Chloride 101 (98-107) mEq/L Carbon Dioxide 27 (21-32) mEq/L Anion Gap 12.3 (5-15) BUN 8 (7-18) mg/dL Creatinine 0.7 (0.7-1.3) mg/dL Est Cr Clr Drug Dosing 111.53 mL/min Estimated GFR (MDRD) > 60 (>60) mL/min BUN/Creatinine Ratio 11.4 L (14-18) Glucose 212 H (80-115) mg/dL POC Glucose 190 H (80-115) mg/dL Calcium 8.9 (8.5-10.1) mg/dL Magnesium 2.2 (1.8-2.4) mg/dl CK-MB (CK-2) (0-3.6) ng/ml Troponin I (0.00-0.056) ng/mL C-Reactive Protein 6.1 H* (<1.0) mg/dL Vitamin D 25-Hydroxy (30-100) ng/mL Body Fluid Site Fluid Type Fluid Volume ML Fluid Color Fluid Appearance Fluid pH (4.5-10.0) Fluid WBC (0.20-0.60) k/mm*3 Fluid RBC (0.00-0.010) 10*6/uL Fluid Diff Comment Fluid Seg Neutrophils (0-25) % Fluid Lymphocytes (0-78) % Fluid Monocytes (0-71) % Fl Polymorphonucl Cell Fluid Glucose mg/dL Fluid Total Protein gm/dl Fluid LDH U/L 08/10/17 Range/Units 06:51 WBC (4.23-9.07) K/mm3 RBC (4.63-6.08) M/mm3 Hgb (13.7-17.5) gm/L Hct (40.1-51.0) % MCV (79.0-92.2) fl MCH (25.7-32.2) pg MCHC (32.2-35.5) g/dl RDW Std Deviation (35.1-43.9) fL Plt Count (163-337) K/mm3 MPV (9.4-12.3) fl Neut % (Auto) (34.0-67.9) % Lymph % (Auto) (21.8-53.1) % [place] % (Auto) (5.3-12.2) % Eos % (Auto) (0.8-7.0) Baso % (Auto) (0.1-1.2) % Neut # (Auto) (1.78-5.38) K/mm3 Lymph # (Auto) (1.32-3.57) K/mm3 [place] # (Auto) (0.30-0.82) K/mm3 Eos # (Auto) (0.04-0.54) K/mm3 Baso # (Auto) (0.01-0.08) K/mm3 Manual Slide Review D-Dimer, Quantitative (0.19-0.50) mg/L Sodium (136-145) mEq/L Potassium (3.5-5.1) mEq/L Chloride (98-107) mEq/L Carbon Dioxide (21-32) mEq/L Anion Gap (5-15) BUN (7-18) mg/dL Creatinine (0.7-1.3) mg/dL Est Cr Clr Drug Dosing mL/min Estimated GFR (MDRD) (>60) mL/min BUN/Creatinine Ratio (14-18) Glucose (80-115) mg/dL POC Glucose 185 H (80-115) mg/dL Calcium (8.5-10.1) mg/dL Magnesium (1.8-2.4) mg/dl CK-MB (CK-2) (0-3.6) ng/ml Troponin I (0.00-0.056) ng/mL C-Reactive Protein (<1.0) mg/dL Vitamin D 25-Hydroxy (30-100) ng/mL Body Fluid Site Fluid Type Fluid Volume ML Fluid Color Fluid Appearance Fluid pH (4.5-10.0) Fluid WBC (0.20-0.60) k/mm*3 Fluid RBC (0.00-0.010) 10*6/uL Fluid Diff Comment Fluid Seg Neutrophils (0-25) % Fluid Lymphocytes (0-78) % Fluid Monocytes (0-71) % Fl Polymorphonucl Cell Fluid Glucose mg/dL Fluid Total Protein gm/dl Fluid LDH U/L CASSIUS Results - Last 24 hrs: Microbiology 08/09/17 04:55 Streptococcus pneumoniae Antigen (M - Final Urine 08/09/17 00:07 Respiratory Virus Panel (PCR) - Final Nasopharyngeal Swab Med Orders - Current: Current Medications Discontinued Medications Acetaminophen (Tylenol) 650 mg PO Q4H PRN PRN Reason: Pain (Mild 1-3)/fever Hydrocodone Bitart/Acetaminophen ([place] 325-5 Mg) 1 tab PO Q4H PRN PRN Reason: Pain (moderate 4-6) Last Admin: 08/10/17 06:47 Dose: 1 tab Albuterol/Ipratropium (Duoneb 3.0-0.5 Mg/3 Ml) 3 ml NEB Q4H PRN PRN Reason: Shortness Of Breath/wheezing Last Admin: 08/09/17 20:12 Dose: 3 ml Aspirin (Halfprin) 81 mg PO DAILY [facility] Last Admin: 08/09/17 09:28 Dose: 81 mg Benzonatate (Tessalon Perles) 200 mg PO BID [facility] Last Admin: 08/09/17 21:51 Dose: 200 mg Bisacodyl (Dulcolax) 5 mg PO DAILY PRN PRN Reason: Constipation Dextrose/Water (Dextrose 50% In Water) 50 ml IVPUSH ASDIRECTED PRN PRN Reason: Hypoglycemia Docusate Sodium (Colace) 100 mg PO BID PRN PRN Reason: Constipation Famotidine (Pepcid) 20 mg IVPUSH ONETIME ONE Stop: 08/09/17 00:23 Last Admin: 08/09/17 01:24 Dose: 20 mg Famotidine (Pepcid) 20 mg PO BID [facility] Last Admin: 08/09/17 21:50 Dose: 20 mg Glipizide (Glucotrol Xl) 5 mg PO DAILY [facility] Last Admin: 08/09/17 09:28 Dose: 5 mg Guaifenesin/Phenylephrine HCl (Robitussin Dm) 10 ml PO Q4H PRN PRN Reason: Cough Heparin Sodium (Porcine) (Heparin Sodium) 5,000 units SUBCUT Q12H [facility] Last Admin: 08/09/17 21:50 Dose: 5,000 units Hydralazine HCl (Apresoline) 20 mg IVPUSH Q4H PRN PRN Reason: Hypertension Promethazine HCl 12.5 mg/ (Sodium Chloride) 50.5 mls @ 100 mls/hr IV Q6H PRN PRN Reason: Nausea/Vomiting Levofloxacin/Dextrose 750 mg/ (Premix) 150 mls @ 100 mls/hr IV ONETIME ONE Stop: 08/08/17 23:29 Last Admin: 08/08/17 23:37 Dose: 100 mls/hr Levofloxacin/Dextrose 750 mg/ (Premix) 150 mls @ 100 mls/hr IV Q24H [facility] Last Admin: 08/09/17 21:51 Dose: 100 mls/hr Sodium Chloride (Normal Saline) 500 mls @ 999 mls/hr IV .BOLUS ONE Stop: 08/09/17 17:12 Last Admin: 08/09/17 16:58 Dose: 999 mls/hr Sodium Chloride (Normal Saline) 100 mls @ 65 mls/hr IV ASDIRECTED [facility] Last Admin: 08/09/17 17:34 Dose: 65 mls/hr Insulin Aspart (Novolog) 0 unit SUBCUT QIDACANDBED [facility]; Protocol Last Admin: 08/10/17 07:00 Dose: Not Given Iopamidol (Isovue-370 (76%)) 100 ml IVPUSH ONETIME ONE Stop: 08/09/17 16:57 Last Admin: 08/09/17 17:34 Dose: 100 ml Levofloxacin (Levaquin) 750 mg PO Q24H STA Stop: 08/10/17 06:33 Last Admin: 08/10/17 06:48 Dose: 750 mg Lidocaine HCl (Xylocaine 1%) Confirm Administered Dose 50 ml .ROUTE .STK-MED ONE Stop: 08/09/17 12:20 Last Admin: 08/09/17 13:31 Dose: 10 ml Lisinopril (Prinivil) 10 mg PO DAILY [facility] Last Admin: 08/09/17 09:28 Dose: 10 mg Lorazepam (Ativan) 2 mg IVPUSH Q4H PRN PRN Reason: Seizures Lorazepam (Ativan) 1 mg IV Q6H PRN PRN Reason: Anxiety Magnesium Sulfate (Pharmacy To Dose - Magnesium Replacement) 1 dose .XX ASDIRECTED [facility] Metformin HCl (Glucophage) 250 mg PO BID [facility] Admin: 08/09/17 18:16 Dose: Not Given Metoprolol Tartrate (Lopressor) 5 mg IVPUSH Q4H PRN PRN Reason: Tachycardia Miscellaneous Information (Remove Patch) 1 ea TRDERM DAILY [facility] Last Admin: 08/09/17 09:53 Dose: Not Given Morphine Sulfate (Morphine) 1 mg IVPUSH Q4H PRN PRN Reason: Other Stop: 08/09/17 21:56 Last Admin: 08/09/17 12:45 Dose: 2 mg Morphine Sulfate (Morphine) Confirm Administered Dose 4 mg .ROUTE .STK-MED ONE Stop: 08/09/17 12:44 Last Admin: 08/09/17 13:00 Dose: 4 mg Morphine Sulfate (Morphine) Confirm Administered Dose 4 mg .ROUTE .STK-MED ONE Stop: 08/09/17 12:45 Last Admin: 08/09/17 13:34 Dose: 1 mg Nicotine (Habitrol) 21 mg TRDERM DAILY [facility] Last Admin: 08/09/17 09:53 Dose: Not Given Nicotine (Habitrol) 21 mg TRDERM ONETIME ONE Stop: 08/08/17 22:01 Last Admin: 08/08/17 23:37 Dose: Not Given Ondansetron HCl (Zofran) 4 mg IV Q6H PRN PRN Reason: Nausea/Vomiting Pneumococcal Polyvalent Vaccine (Pneumovax 23) 0.5 ml IM .ONCE ONE Stop: 08/09/17 07:17 Last Admin: 08/10/17 07:47 Dose: Not Given Polyethylene Glycol (Miralax) 17 gm PO DAILY PRN PRN Reason: Constipation Potassium Chloride (Pharmacy To Dose - Potassium Replacement) 1 dose .XX [facility] Saccharomyces Boulardii (Florastor) 250 mg PO DAILY [facility] Last Admin: 08/09/17 09:28 Dose: 250 mg Saccharomyces Boulardii (Florastor) 500 mg PO DAILY ONE Stop: 08/08/17 22:01 Last Admin: 08/08/17 23:36 Dose: 500 mg Senna/Docusate Sodium (Senna Plus) 1 tab PO BID PRN PRN Reason: Constipation Simvastatin (Zocor) 10 mg PO DAILY [facility] Last Admin: 08/09/17 09:28 Dose: 10 mg Sodium Chloride (Saline Flush) 10 ml FLUSH ONETIME PRN PRN Reason: IV FLUSH Last Admin: 08/09/17 17:34 Dose: 10 ml Temazepam (Restoril) 15 mg PO BEDTIME PRN PRN Reason: Sleep - Exam Quality Assessment: Denies: Supplemental Oxygen General: Reports: Alert, Oriented, Cooperative, No Acute Distress HEENT: Reports: Pupils Equal, Pupils Reactive, EOMI, Mucous Membr. Moist/[place] Neck: Reports: Supple. Denies: Lymphadenopathy Lungs: Reports: Clear to Auscultation, Normal Respiratory Effort, Decreased Breath Sounds Cardiovascular: Reports: Regular Rate, Regular Rhythm, No Murmurs GI/Abdominal Exam: Normal Bowel Sounds, Soft, Non-Tender, No Distention (Male) Exam: Deferred Rectal (Males) Exam: Deferred Back Exam: Reports: Normal Inspection, Full Range of Motion Extremities: Normal Inspection, Normal Range of Motion, Non-Tender, No Pedal Edema Skin: Reports: Warm, Dry Neurological: Reports: No New Focal Deficit, Strength Equal Bilateral, Cranial Nerves Intact (grossly ) Psy/Mental Status: Reports: Alert, Normal Affect, Normal Mood <Jac To T - Last Filed: 08/19/17 11:38> Discharge Summary - Discharge Diagnosis/Problem(s) (1) Pneumonia SNOMED Code(s): 052406922 ICD Code: J18.9 - PNEUMONIA, UNSPECIFIED ORGANISM Status: Acute Qualifiers: Pneumonia type: due to unspecified organism Laterality: right Lung location: lower lobe of lung Qualified Code(s): J18.1 - Lobar pneumonia, unspecified organism (2) Pulmonary insufficiency SNOMED Code(s): 148414163 ICD Code: J98.4 - OTHER DISORDERS OF LUNG Status: Chronic Problem Details : - He is a smoker for 50 years --> Likely has Obstructive Lung Disease - PFT outpatient and Emphymatous changes on CTA (3) Pleural cavity effusion SNOMED Code(s): 39096001 ICD Code: J90 - PLEURAL EFFUSION, NOT ELSEWHERE CLASSIFIED Status: Resolved Problem Details: - Awaiting 2D echo report; likely be fazed to his PCP's office since he will be leaving early today to get to his GI appointment in [place] (4) Status post thoracentesis SNOMED Code(s): 201865723, 659293481 ICD Code: Z98.890 - OTHER SPECIFIED POSTPROCEDURAL STATES Status: Inactive (5) Hyperglycemia due to type 2 diabetes mellitus SNOMED Code(s): 308161220082743, 537811476062214 ICD Code: E11.65 - TYPE 2 DIABETES MELLITUS WITH HYPERGLYCEMIA Status: Acute Qualifiers: Diabetes mellitus penitentiary insulin use: without penitentiary use Qualified Code(s): E11.65 - Type 2 diabetes mellitus with hyperglycemia (6) Weight loss, unintentional SNOMED Code(s): 602256473 ICD Code: R63.4 - ABNORMAL WEIGHT LOSS Status: Acute Problem Details: - Likley related to Pleural Effusion - Has pending Pancreatic eval in [place] today (7) Weakness generalized SNOMED Code(s): 80687308 ICD Code: R53.1 - WEAKNESS Status: Resolved - Patient Summary/Data Consults: Consultations 08/08/17 21:59 Consult to Diabetic Nurse Specialist [CONS] Routine Consult to Shake Out Worker [CONS] Routine OT Evaluation and Treatment [CONS] Routine PT Evaluation and Treatment [CONS] Routine Respiratory Care Assess and Treatment [CONS] Routine Hospital Course: The patient was seen and followed by the PA student with my supervision. The discharge assessment and plans were discussed and agreed upon with me. Addendum: The patient and his understood he is not quiet ready for discharge but would not want to miss out on his GI appointment in [place] that took quite a while to him get in. However we agreed that he will be provided oral antibiotic to complete his pneumonia treatment and that he call his PCP or get to a nearest medical facility should he experience any sudden changes on his overall health. He was advised to see his PCP in 1-2 weeks. Additionally, the patient was informed any inpatient test results that we were not able to review or discuss prior to discharge will be forwarded to his PCP and hopefully be discussed with him on follow up appointment. A short course of narcotic pills was provided for his pleuritic pain status post thoracentesis. He was advised to avoid alcohol and was cautioned on operating any motor vehicles while taking this medication. The patient and his at bedside expressed understanding and in agreement with the plans as discussed above. All questions were answered. - Discharge Summary/Plan Comment Discharge Summary/Plan Comment: Offered practical counseling on smoking cigarettes. He was counseled about the dangers of smoking and associated health risks. At this time he is not ready to quit but receptive to the idea of smoking cessation. Patient was provided reading materials or brochures to help when to quit smoking. He was advised to set a specific date, call the Quit line and follow up with her PCP when he is ready to quit. Additionally, he was offered nicotine patch but refused. He still got some at home. - Patient Data Vitals - Most Recent: Last Vital Signs Temp 36.7 C 08/10/17 05:11 Pulse 66 08/10/17 05:11 Resp 18 08/10/17 05:11 BP 119/85 08/10/17 05:11 Pulse Ox 91 L 08/10/17 05:11 Med Orders - Current: Current Medications Discontinued Medications Acetaminophen (Tylenol) 650 mg PO Q4H PRN PRN Reason: Pain (Mild 1-3)/fever Hydrocodone Bitart/Acetaminophen ([place] 325-5 Mg) 1 tab PO Q4H PRN PRN Reason: Pain (moderate 4-6) Last Admin: 08/10/17 06:47 Dose: 1 tab Albuterol/Ipratropium (Duoneb 3.0-0.5 Mg/3 Ml) 3 ml NEB Q4H PRN PRN Reason: Shortness Of Breath/wheezing Last Admin: 08/09/17 20:12 Dose: 3 ml Aspirin (Halfprin) 81 mg PO DAILY [facility] Last Admin: 08/09/17 09:28 Dose: 81 mg Benzonatate (Tessalon Perles) 200 mg PO BID [facility] Last Admin: 08/09/17 21:51 Dose: 200 mg Bisacodyl (Dulcolax) 5 mg PO DAILY PRN PRN Reason: Constipation Dextrose/Water (Dextrose 50% In Water) 50 ml IVPUSH ASDIRECTED PRN PRN Reason: Hypoglycemia Docusate Sodium (Colace) 100 mg PO BID PRN PRN Reason: Constipation Famotidine (Pepcid) 20 mg IVPUSH ONETIME ONE Stop: 08/09/17 00:23 Last Admin: 08/09/17 01:24 Dose: 20 mg Famotidine (Pepcid) 20 mg PO BID [facility] Last Admin: 08/09/17 21:50 Dose: 20 mg Glipizide (Glucotrol Xl) 5 mg PO DAILY [facility] Last Admin: 08/09/17 09:28 Dose: 5 mg Guaifenesin/Phenylephrine HCl (Robitussin Dm) 10 ml PO Q4H PRN PRN Reason: Cough Heparin Sodium (Porcine) (Heparin Sodium) 5,000 units SUBCUT Q12H [facility] Last Admin: 08/09/17 21:50 Dose: 5,000 units Hydralazine HCl (Apresoline) 20 mg IVPUSH Q4H PRN PRN Reason: Hypertension Promethazine HCl 12.5 mg/ (Sodium Chloride) 50.5 mls @ 100 mls/hr IV Q6H PRN PRN Reason: Nausea/Vomiting Levofloxacin/Dextrose 750 mg/ (Premix) 150 mls @ 100 mls/hr IV ONETIME ONE Stop: 08/08/17 23:29 Last Admin: 08/08/17 23:37 Dose: 100 mls/hr Levofloxacin/Dextrose 750 mg/ (Premix) 150 mls @ 100 mls/hr IV Q24H [facility] Last Admin: 08/09/17 21:51 Dose: 100 mls/hr Sodium Chloride (Normal Saline) 500 mls @ 999 mls/hr IV .BOLUS ONE Stop: 08/09/17 17:12 Last Admin: 08/09/17 16:58 Dose: 999 mls/hr Sodium Chloride (Normal Saline) 100 mls @ 65 mls/hr IV ASDIRECTED [facility] Last Admin: 08/09/17 17:34 Dose: 65 mls/hr Insulin Aspart (Novolog) 0 unit SUBCUT QIDACANDBED [facility]; Protocol Last Admin: 08/10/17 07:00 Dose: Not Given Iopamidol (Isovue-370 (76%)) 100 ml IVPUSH ONETIME ONE Stop: 08/09/17 16:57 Last Admin: 08/09/17 17:34 Dose: 100 ml Levofloxacin (Levaquin) 750 mg PO Q24H STA Stop: 08/10/17 06:33 Last Admin: 08/10/17 06:48 Dose: 750 mg Lidocaine HCl (Xylocaine 1%) Confirm Administered Dose 50 ml .ROUTE .STK-MED ONE Stop: 08/09/17 12:20 Last Admin: 08/09/17 13:31 Dose: 10 ml Lisinopril (Prinivil) 10 mg PO DAILY [facility] Last Admin: 08/09/17 09:28 Dose: 10 mg Lorazepam (Ativan) 2 mg IVPUSH Q4H PRN PRN Reason: Seizures Lorazepam (Ativan) 1 mg IV Q6H PRN PRN Reason: Anxiety Magnesium Sulfate (Pharmacy To Dose - Magnesium Replacement) 1 dose .XX [facility]RECTED [facility] Metformin HCl (Glucophage) 250 mg PO BID [facility] Admin: 08/09/17 18:16 Dose: Not Given Metoprolol Tartrate (Lopressor) 5 mg IVPUSH Q4H PRN PRN Reason: Tachycardia Miscellaneous Information (Remove Patch) 1 ea TRDERM DAILY [facility] Last Admin: 08/09/17 09:53 Dose: Not Given Morphine Sulfate (Morphine) 1 mg IVPUSH Q4H PRN PRN Reason: Other Stop: 08/09/17 21:56 Last Admin: 08/09/17 12:45 Dose: 2 mg Morphine Sulfate (Morphine) Confirm Administered Dose 4 mg .ROUTE .STK-MED ONE Stop: 08/09/17 12:44 Last Admin: 08/09/17 13:00 Dose: 4 mg Morphine Sulfate (Morphine) Confirm Administered Dose 4 mg .ROUTE .STK-MED ONE Stop: 08/09/17 12:45 Last Admin: 08/09/17 13:34 Dose: 1 mg Nicotine (Habitrol) 21 mg TRDERM DAILY [facility] Last Admin: 08/09/17 09:53 Dose: Not Given Nicotine (Habitrol) 21 mg TRDERM ONETIME ONE Stop: 08/08/17 22:01 Last Admin: 08/08/17 23:37 Dose: Not Given Ondansetron HCl (Zofran) 4 mg IV Q6H PRN PRN Reason: Nausea/Vomiting Pneumococcal Polyvalent Vaccine (Pneumovax 23) 0.5 ml IM .ONCE ONE Stop: 08/09/17 07:17 Last Admin: 08/10/17 07:47 Dose: Not Given Polyethylene Glycol (Miralax) 17 gm PO DAILY PRN PRN Reason: Constipation Potassium Chloride (Pharmacy To Dose - Potassium Replacement) 1 dose .XX [facility]RECTED [facility] Saccharomyces Boulardii (Florastor) 250 mg PO DAILY [facility] Last Admin: 08/09/17 09:28 Dose: 250 mg Saccharomyces Boulardii (Florastor) 500 mg PO DAILY ONE Stop: 08/08/17 22:01 Last Admin: 08/08/17 23:36 Dose: 500 mg Senna/Docusate Sodium (Senna Plus) 1 tab PO BID PRN PRN Reason: Constipation Simvastatin (Zocor) 10 mg PO DAILY [facility] Last Admin: 08/09/17 09:28 Dose: 10 mg Sodium Chloride (Saline Flush) 10 ml FLUSH ONETIME PRN PRN Reason: IV FLUSH Last Admin: 08/09/17 17:34 Dose: 10 ml Temazepam (Restoril) 15 mg PO BEDTIME PRN PRN Reason: Sleep
== END 2017-08-10 07:20 | disposition home or self-care (01) | DRG 139 ==
LOC: JD.ED 20:04 → JD.MS 21:48
PROVIDERS: ADMIT Internal Medicine; ATTEND Internal Medicine
PROC: 0W993ZX Drainage of Right Pleural Cavity, Percutaneous Approach, Diagnostic (ICD-10-PCS; principal; 2017-08-09)
DX: J18.9 Pneumonia, unspecified organism (principal); J91.8 Pleural effusion in other conditions classified elsewhere; I50.9 Heart failure, unspecified; I11.0 Hypertensive heart disease with heart failure; E11.65 Type 2 diabetes mellitus with hyperglycemia; K86.1 Other chronic pancreatitis; J44.0 Chronic obstructive pulmonary disease with (acute) lower respiratory infection; F17.200 Nicotine dependence, unspecified, uncomplicated; R79.1 Abnormal coagulation profile; E78.00 Pure hypercholesterolemia, unspecified; I73.9 Peripheral vascular disease, unspecified; M19.90 Unspecified osteoarthritis, unspecified site; H54.7 Unspecified visual loss; H91.90 Unspecified hearing loss, unspecified ear; Z95.828 Presence of other vascular implants and grafts; Z79.84 Long term (current) use of oral hypoglycemic drugs; Z79.82 Long term (current) use of aspirin; Z79.899 Other long term (current) drug therapy; Z85.828 Personal history of other malignant neoplasm of skin
CPT/HCPCS: 36415; 71045; 71045-26; 71275; 71275-26; 76942; 80048; 80061; 81001; 82042; 82044; 82306; 82553; 82945; 82962; 83036; 83615; 83735; 83986; 84157; 84439; 84443; 84484; 85025; 85379; 85610; 86140; 86677; 86738; 87070; 87102; 87205; 87486; 87581; 87633; 87798; 87899; 88112-26; 89050; 93005; 93306; 94640; 94667; 94760; 97110-GP; 97161-GP; 99223; 99233; 99239; 99285; A9270-GY; J1644; J1815-GY; J1956; J2270; J7030; J7040; J7050; Q9967

== ENCOUNTER 2018-02-24 17:04 | Emergency (ER) | payer BC ==
--- NOTE | 2018-02-24 18:53 | EDM.PDOC ---
ED HPI GENERAL MEDICAL PROBLEM - General Chief Complaint: Abdominal Pain Stated Complaint: CONSTIPATED Time Seen by Provider: 02/24/18 17:20 Source of Information: Reports: Patient, RN Notes Reviewed - History of Present Illness INITIAL COMMENTS - FREE TEXT/NARRATIVE: 62 year old male has been constipated for about 7 to 10 days. Did have a BM 2 days ago, unable to go yesterday or today. Feels a lot of urgency, has not tried any type of laxative. Occas. abd cramps. No nausea, vomiting, fever or chills. Rectal Pain Score (Numeric/FACES): 3 - Related Data Allergies Allergy/AdvReac Type Severity Reaction Status Date / Time No Known Allergies Allergy Verified 08/08/17 20:18 Home Meds: Home Meds Lisinopril [Prinivil] 5 mg PO DAILY 08/08/17 [History] glipiZIDE [Glipizide ER] 5 mg PO DAILY 08/08/17 [History] Simvastatin [Zocor] 40 mg PO BEDTIME #30 tablet 08/10/17 [Rx] levoFLOXacin [Levaquin] 750 mg PO DAILY #4 tab 08/10/17 [Rx] metFORMIN [Glucophage XR] 500 mg PO BEDTIME #0 08/10/17 [Rx] sitaGLIPtin Phos/Metformin HCl [Janumet 50-1,000 MG] 1 tab PO DAILY #0 08/10/17 [Rx] Past Medical History HEENT History: Reports: Hard of Hearing Cardiovascular History: Reports: High Cholesterol, Hypertension Gastrointestinal History: Reports: Pancreatitis Genitourinary History: Reports: Other (See Below) Other Genitourinary History: pancreatitis Musculoskeletal History: Reports: Back Pain, Chronic Neurological History: Reports: None Psychiatric History: Reports: None Endocrine/Metabolic History: Reports: Diabetes, Type II Hematologic History: Reports: None Immunologic History: Reports: None Oncologic (Cancer) History: Reports: Other (See Below) Other Oncologic History: Patient states he had skin cancer on thumb but unsure what kind Dermatologic History: Reports: None Social & Family History - Tobacco Use Smoking Status *Q: Current Every Day Smoker Years of Tobacco use: 52 Packs/Tins Daily: 2 - Caffeine Use Caffeine Use: Reports: Coffee, Soda, Tea Caffeine Use Comment: Patient drinks about 2 cups per day total of coffee, tea, soda - Recreational Drug Use Recreational Drug Use: No ED ROS GENERAL - Review of Systems Review Of Systems: See Below Constitutional: Denies: Fever, Chills, Diaphoresis HEENT: Reports: No Symptoms Cardiovascular: Denies: Chest Pain GI/Abdominal: Reports: Abdominal Pain (occasional mild lower abd cramps), Constipation. Denies: Diarrhea, Hematochezia, Melena, Nausea, Vomiting : Reports: No Symptoms Musculoskeletal: Reports: No Symptoms Skin: Reports: No Symptoms Neurological: Reports: No Symptoms ED EXAM, GI/ABD - Physical Exam Exam: See Below General Appearance: Alert, No Apparent Distress Throat/Mouth: Normal Inspection Head: Atraumatic Neck: Supple Respiratory/Chest: No Respiratory Distress, Lungs Clear Cardiovascular: Regular Rate, Rhythm GI/Abdominal Exam: Soft, Non-Tender, No Mass Back Exam: Other (moderate firm stool upper rectum, not impacted. ) Extremities: Normal Inspection, Normal Range of Motion Skin Exam: Warm, Dry, Normal Color Course - Vital Signs Last Recorded V/S: Last Vital Signs Temp 97.1 F 02/24/18 17:12 Pulse 63 02/24/18 17:12 Resp 20 02/24/18 17:12 BP 109/77 02/24/18 17:12 Pulse Ox 97 02/24/18 17:12 - Orders/Labs/Meds Orders: Active Orders 24 hr Category Date Time Status Enema [RC] ASDIRECTED Care 02/24/18 17:46 Active - Re-Assessments/Exams Free Text/Narrative Re-Assessment/Exam: 02/25/18 17:03 we did give an enema, he had excellent results. Discharge instr. as documented. Departure - Departure Time of Disposition: 18:48 Disposition: Home, Self-Care 01 Condition: Fair Clinical Impression: Constipation Qualifiers: Constipation type: unspecified constipation type Qualified Code(s): K59.00 - Constipation, unspecified - Discharge Information Instructions: Constipation, Adult, [id number] Referrals: Ziyad Alvares Jr, MD [Primary Care Provider] - Forms: ED Department Discharge Additional Instructions: Drink plenty of water to maintain hydration. Stool softeners such as Colace once or twice daily, that is available OTC. Also berry picker machine operator a laxative medication called ducolax that you may take any day that you have not had a BM. You also can berry picker machine operator fiber pills to take once daily as needed. prunes or prune juice as needed. Follow up clinic as needed. Return to ED as needed. - My Orders Last 24 Hours: My Active Orders 02/24/18 17:46 Enema [RC] ASDIRECTED - Assessment/Plan Last 24 Hours: My Active Orders 02/24/18 17:46 Enema [RC] ASDIRECTED
== END 2018-02-24 18:57 | disposition home or self-care (01) ==
LOC: JD.ED 17:04
DX: K59.00 Constipation, unspecified (principal); E78.00 Pure hypercholesterolemia, unspecified; I10 Essential (primary) hypertension; E11.9 Type 2 diabetes mellitus without complications; F17.210 Nicotine dependence, cigarettes, uncomplicated; Z79.899 Other long term (current) drug therapy; Z79.82 Long term (current) use of aspirin; Z79.84 Long term (current) use of oral hypoglycemic drugs
CPT/HCPCS: 99283

== ENCOUNTER 2018-03-03 06:26 | Day surgery (SDC) | payer BC ==
[~2018-03-03 06:26] MED LIST: Lactated Ringers 1,000 ML IV SCH; Lidocaine 1%/Sod Bicarbonate in NS 8.4% 1 ML Syringe IDERM PRN; Sodium Chloride 0.9% 10 ML Syringe FLUSH PRN
[2018-03-03] MEDS ORDERED: Lidocaine 1% 6 ML ONE (06:51)
[2018-03-03] MEDS ORDERED: fentaNYL 100 MCG/2 ML SDV ONE (06:52)
[2018-03-03] MEDS ORDERED: Propofol 200 MG/20 ML SDV ONE ×2 (06:52→08:03)
[2018-03-03] MEDS ORDERED: Albuterol 0.083% 2.5 MG/3 ML Neb Soln NEB ONE (06:59)
--- NOTE | 2018-03-03 07:07 | PCM.PREANE ---
Preanesthetic Assessment - Anesthesia/Transfusion/Family Hx Anesthesia History: Prior Anesthesia Without Reaction Family History of Anesthesia Reaction: No Transfusion History: No Prior Transfusion(s) Intubation History: Unknown - Review of Systems General: No Symptoms, Fatigue, Malaise Pulmonary: No Symptoms (COPD: 1-2 ppd times 50 years), Cough Cardiovascular: No Symptoms (HTN, PVD) Gastrointestinal: Constipation, Decreased Appetite Neurological: Tingling (fingertips due to frostbite in the past) Other: Reports: None (History of pancreatitis due to cholecystitis in the past.) , Diabetes (am blood thxph=444 @ 0600) - Physical Assessment NPO Status Date: 03/02/18 NPO Status Time: 17:30 Pulse: 57 O2 Sat by Pulse Oximetry: 95 Respiratory Rate: 17 Blood Pressure: 103/72 Temperature: 36.8 C Height: 1.8 m Weight: 75 kg ASA Class: 3 Mental Status: Alert & Oriented x3 Airway Class: Mallampati = 2 Dentition: Reports: Dentures Thyro-Mental Finger Breadths: 3 Mouth Opening Finger Breadths: 3 ROM/Head Extension: Full Lungs: Clear to Auscultation, Normal Respiratory Effort, Decreased Breath Sounds , Crackles Cardiovascular: Regular Rate, Regular Rhythm, No Murmurs - Allergies Allergies/Adverse Reactions: Allergies Allergy/AdvReac Type Severity Reaction Status Date / Time No Known Allergies Allergy Verified 03/02/18 19:03 - Anesthesia Plan Pre-Op Medication Ordered: None - Acknowledgements Anesthesia Type Planned: MAC Pt an Appropriate Candidate for the Planned Anesthesia: Yes Alternatives and Risks of Anesthesia Discussed w Pt/Guardian: Yes Pt/Guardian Understands and Agrees with Anesthesia Plan: Yes PreAnesthesia Questionnaire HEENT History: Reports: Cataract, Hard of Hearing, Impaired Vision Other HEENT History: wears glasses, has dentures Cardiovascular History: Reports: High Cholesterol, Hypertension, PVD, Stents Respiratory History: Reports: COPD, Other (See Below) Other Respiratory History: emphysema, pleural effusion, pneumonia, thoracentesis Gastrointestinal History: Reports: Chronic Constipation, Helicobacter Pylori, Pancreatitis Genitourinary History: Reports: Other (See Below) Other Genitourinary History: pancreatitis CORE FILER History: Reports: None Musculoskeletal History: Reports: Back Pain, Chronic, Osteoarthritis Neurological History: Reports: None Psychiatric History: Reports: Other (See Below) Other Psychiatric History: psychosexual dysfunction with inhibited, sexual excitement, alcohol abuse Endocrine/Metabolic History: Reports: Diabetes, Type II Hematologic History: Reports: None Immunologic History: Reports: None Oncologic (Cancer) History: Reports: Squamous Cell Carcinoma, Other (See Below) Other Oncologic History: Patient states he had skin cancer on thumb but unsure what kind Dermatologic History: Reports: Other (See Below) Other Dermatologic History: SCC, excision of sebaceous cyst - Past Surgical History Head Surgeries/Procedures: Reports: None HEENT Surgical History: Reports: Tonsillectomy Cardiovascular Surgical History: Reports: None Respiratory Surgical History: Reports: Thoracentesis GI Surgical History: Reports: Cholecystectomy Endocrine Surgical History: Reports: None Neurological Surgical History: Reports: Other (See Below) Other Neurological Surgeries/Procedures: back surgery Musculoskeletal Surgical History: Reports: Other (See Below) Other Musculoskeletal Surgeries/Procedures:: partial finger amputation Oncologic Surgical History: Reports: None - SUBSTANCE USE Smoking Status *Q: Current Every Day Smoker Days Per Week of Alcohol Use: 7 Number of Drinks Per Day: 4 Total Drinks Per Week: 28 Recreational Drug Use History: No - HOME MEDS Home Medications: Home Meds Lisinopril [Prinivil] 5 mg PO DAILY 08/08/17 [History] metFORMIN [Glucophage XR] 500 mg PO BEDTIME #0 08/10/17 [Rx] sitaGLIPtin Phos/Metformin HCl [Janumet 50-1,000 MG] 1 tab PO DAILY #0 08/10/17 [Rx] Ergocalciferol (Vitamin D2) [Vitamin D2] 50,000 unit PO Q7D 03/02/18 [History] Insulin Aspart [NovoLOG] 5 mg SQ TID 03/02/18 [History] Simvastatin 10 mg PO DAILY 03/02/18 [History] Tresiba 26 units SQ QAM 03/02/18 [History] glipiZIDE [Glipizide ER] 10 mg PO DAILY 03/02/18 [History] - CURRENT (IN HOUSE) MEDS Current Meds: Current Medications Lactated Ringer's (Ringers, Lactated) 1,000 mls @ 125 mls/hr IV ASDIRECTED VON Stop: 03/03/18 23:00 Lidocaine/Sodium Bicarbonate (Buffered Lidocaine 1% In Ns 8.4%) 0.25 ml IDERM ONETIME PRN PRN Reason: Prior to IV Start Stop: 03/03/18 18:00 Sodium Chloride (Saline Flush) 10 ml FLUSH ASDIRECTED PRN PRN Reason: Keep Vein Open Stop: 03/03/18 18:00 Discontinued Medications Albuterol (Proventil Neb Soln) 2.5 mg NEB ONETIME ONE Stop: 03/03/18 07:00 Fentanyl (Sublimaze) Confirm Administered Dose 100 mcg .ROUTE .STK-MED ONE Stop: 03/03/18 06:53 Lidocaine HCl (Xylocaine-Mpf 1%) Confirm Administered Dose 6 mls @ as directed .ROUTE .STK-MED ONE Stop: 03/03/18 06:52 Propofol (Diprivan 20 Ml) Confirm Administered Dose 200 mg .ROUTE .STK-MED ONE Stop: 03/03/18 06:53
[2018-03-03] MEDS ORDERED: ePHEDrine/Normal Saline 25 MG/5 ML Syringe ONE (07:57)
--- NOTE | 2018-03-03 08:24 | PCM.OPNOTE ---
- General Post-Op/Procedure Note Date of Surgery/Procedure: 03/03/18 Operative Procedure(s): Diagnostic Colonoscopy Findings: Poor prep, procedure terminated due to poor prep Post-Op Diagnosis: Poor prep, no obvious findings Anesthesia Technique: MAC Primary Surgeon: Damian Castro Anesthesia Provider: Traci Lo EBL in mLs: 5 Complications: None Condition: Good Free Text/Narrative:: After the patient gave verbal and written consent he was placed on blood pressure and pulse ox monitoring. He was given IV sedation which he tolerated well. The olympus colonoscope was inserted per rectum and advanced to the cecum. The ileocecal valve and appendiceal orfice were seen. The scope was withdrawn. The prep was poor. There was a considerable amount of semi-solid stool in the stool. The scope was removed due to the suction not operating correctly and an new colonoscope was introduced. The procedure was terminated due to the poor prep and inability to visualize the mucosal surfaces adequately. There were no complications. The patient left the endoscopy suite in good condition. It is recommended patient come back in 1-2 months for repeat colonoscopy due to poor prep.
--- NOTE | 2018-03-03 08:27 | PCM48HPAN ---
Post Anesthesia Note - EVALUATION WITHIN 48HRS OF ANESTHETIC Vital Signs in Normal Range: Yes Patient Participated in Evaluation: Yes Respiratory Function Stable: Yes Airway Patent: Yes Cardiovascular Function Stable: Yes Hydration Status Stable: Yes Pain Control Satisfactory: Yes Nausea and Vomiting Control Satisfactory: Yes Mental Status Recovered: Yes
== END 2018-03-03 08:57 | disposition home or self-care (01) ==
LOC: JD.SDS 06:26
PROVIDERS: ATTEND Family Medicine
DX: R19.5 Other fecal abnormalities (principal); I10 Essential (primary) hypertension; E11.36 Type 2 diabetes mellitus with diabetic cataract; F17.210 Nicotine dependence, cigarettes, uncomplicated; H91.90 Unspecified hearing loss, unspecified ear; I73.9 Peripheral vascular disease, unspecified; Z79.4 Long term (current) use of insulin; Z79.899 Other long term (current) drug therapy
CPT/HCPCS: 45378; 94640; J2704; J3010; J7050; J7120; J2001